=== PATIENT | female | born 1950 | race Caucasian/White ===

== ENCOUNTER → 2016-08-27 | Outpatient (CLI) | payer MEDICARE | LOC: GMAB 14:54 | PROVIDERS: ATTEND Family Medicine | DX: D50.8 Other iron deficiency anemias (principal); I10 Essential (primary) hypertension ==

== ENCOUNTER → 2016-12-19 | Outpatient (CLI) | payer MEDICARE | END | disposition home or self-care (01) | LOC: GMAB 10:47 | PROVIDERS: ATTEND Family Medicine | DX: D50.8 Other iron deficiency anemias (principal); K92.1 Melena ==

== ENCOUNTER 2017-03-27 05:45 | Day surgery (SDC) | payer MEDICARE ==
[2017-03-27] MEDS ORDERED: LACTATED RINGERS 1,000 ML ONE (06:04)
[2017-03-27] MEDS ORDERED: LACTATED RINGERS 1,000 ML IVS ONE ×2 (07:40→09:58)
[2017-03-27] MEDS ORDERED: LIDOCAINE 1% 10 ML VIAL INJ ONE (09:00)
[2017-03-27] MEDS ORDERED: PROPOFOL 200 MG/20 ML VIAL IV ONE (09:00)
--- NOTE | 2017-03-27 10:10 | OP ---
DATE OF PROCEDURE: 03/27/17 PREOPERATIVE DIAGNOSIS: 1. Guaiac-positive stool. 2. Change in bowel habits with diarrhea. POSTOPERATIVE DIAGNOSIS: 1. Hemorrhoids. 2. Diverticulosis. 3. Ascending colon polyp. PROCEDURE: 1. Colonoscopy plus polypectomy plus biopsy. SURGEON: Brent Love MD. COMPLICATIONS: None apparent. BLOOD LOSS: None. MEDICATIONS: Monitored anesthesia care. DESCRIPTION OF PROCEDURE: Informed consent was obtained prior to sedation. The preprocedure cardiopulmonary assessment was satisfactory. The patient was placed in the left lateral decubitus position and was sedated. A digital rectal exam revealed no rectal masses. The tip of the Olympus colonoscope was inserted in the rectum and guided over to the cecum. The cecum was identified by locating the ileocecal valve and appendiceal orifice. Prep was good. The mucosa of the cecum, ascending colon, hepatic flexure, transverse colon, splenic flexure, descending colon and sigmoid colon was closely examined. Direct and retroflexed views of the rectum were obtained. The patient had a small ascending colon polyp that I removed with a cold snare and recovered. The patient had diverticulosis involving the ascending colon, descending colon, and sigmoid. The patient has grade 2 internal hemorrhoids. I also took random biopsies of normal appearing colon mucosa throughout the colon to evaluate her for microscopic colitis as a possible cause of her change in bowel habits. The procedure was then terminated. RECOMMENDATIONS: 1. Followup pathology results. 2. Followup with me in the [place] [facility] in the next couple of months. #[id number] cc: Eleno Grissom MD MTDD
[2017-03-27 12:08] VITALS: O2SAT 99
[2017-03-27 12:36] VITALS: BP 150/83; TEMP 98
== END 2017-03-27 10:45 | disposition home or self-care (01) ==
LOC: AMB 05:45
PROVIDERS: ATTEND Internal Medicine Gastroenterology
DX: D12.2 Benign neoplasm of ascending colon (principal); K57.30 Diverticulosis of large intestine without perforation or abscess without bleeding; K64.1 Second degree hemorrhoids; E11.9 Type 2 diabetes mellitus without complications; I10 Essential (primary) hypertension; J44.9 Chronic obstructive pulmonary disease, unspecified; E78.5 Hyperlipidemia, unspecified; D50.9 Iron deficiency anemia, unspecified; E78.00 Pure hypercholesterolemia, unspecified; Z86.010 Personal history of colon polyps; Z79.84 Long term (current) use of oral hypoglycemic drugs; Z79.1 Long term (current) use of non-steroidal anti-inflammatories (NSAID); Z79.51 Long term (current) use of inhaled steroids; Z79.899 Other long term (current) drug therapy; Z88.6 Allergy status to analgesic agent
CPT/HCPCS: 00810; 36416; 45380; 45385; 82948; 88305; J3490; J7120

== ENCOUNTER → 2017-09-11 | Outpatient (CLI) | payer MEDICARE | LOC: GMAB 11:23 | PROVIDERS: ATTEND Family Medicine | DX: D64.9 Anemia, unspecified (principal) ==

== ENCOUNTER → 2017-10-24 | Outpatient (CLI) | payer MEDICARE | LOC: RESP 09:56 | PROVIDERS: ATTEND Family Medicine | DX: J44.1 Chronic obstructive pulmonary disease with (acute) exacerbation (principal) ==

== ENCOUNTER → 2018-02-17 | Outpatient (CLI) | payer MEDICARE | LOC: GMAE 10:56 | PROVIDERS: ATTEND Family Medicine | DX: D50.0 Iron deficiency anemia secondary to blood loss (chronic) (principal); I10 Essential (primary) hypertension; E11.9 Type 2 diabetes mellitus without complications ==

== ENCOUNTER → 2018-03-10 | Outpatient (CLI) | payer MEDICARE | LOC: GMAE 11:36 | PROVIDERS: ATTEND Family Medicine | DX: D50.0 Iron deficiency anemia secondary to blood loss (chronic) (principal) ==

== ENCOUNTER → 2018-05-07 | Outpatient (CLI) | payer MEDICARE | LOC: GMAE 10:39 | PROVIDERS: ATTEND Family Medicine | DX: D50.0 Iron deficiency anemia secondary to blood loss (chronic) (principal) ==

== ENCOUNTER → 2018-11-10 | Outpatient (CLI) | payer MEDICARE | LOC: GMAE 10:49 | PROVIDERS: ATTEND Family Medicine | DX: D50.0 Iron deficiency anemia secondary to blood loss (chronic) (principal); R06.02 Shortness of breath ==

== ENCOUNTER → 2019-01-16 | Outpatient (CLI) | payer MEDICARE ==
[~2019-01-16] MED LIST: ALBUTEROL SULFATE 2.5 MG/3 ML VIAL NEB ONE
--- NOTE | 2019-01-16 16:53 | CT ---
EXAM DESCRIPTION: CTA Chest: Computed Tomography. CLINICAL HISTORY: SOB COMPARISON: CTA chest 03/25/2018. TECHNIQUE: Spiral-axial scans at 1.25 x 2.5 mm intervals through the pulmonary arteries and chest after bolus infusion of IV contrast. Lung algorithm 2.5 x 2.5_-mm axial reconstructions. Coronal and sagittal 2.0 Mm reconstructions. 10.0 mm PE oblique 3-D reformatted images. No adverse reactions. Total Exam DLP: 677.55 mGy-cm. This exam was performed according to our departmental CT dose-optimization program which includes automated exposure control, adjustment of the mA and/or kV according to patient size and/or use of iterative reconstruction technique; to reduce radiation dose to as low as reasonably achievable (ALARA). FINDINGS: Pulmonary arteries: Same contrast density is the aorta and left atrium with less dense than the SVC and left innominate vein. Contrast seen from the main pulmonary artery to the bilateral proximal subsegmental pulmonary artery branches with no filling defects. The distal branches to visualize are also symmetric bilaterally. Heart and other great vessels: Coronary artery, aortic arch, and descending thoracic aortic calcifications also minimal calcifications in the proximal brachiocephalic vessels. Bilateral scattered mosaic parenchymal density. Lungs and airways: Bilateral emphysematous changes more prevalent in the upper lung beas[place]. Mostly blebs but occasional bulla bilaterally which are mostly abutting the pleura. No abnormal nodules or masses. No focal infiltrates. Pleura: Bilateral scattered foci of pleural thickening. No effusion or pneumothorax. Mediastinum and mitzi: scatter artifact from dense PA contrast. Intermediate size nodes in the right hilum. Small nodes in the middle and anterior mediastinum. Soft tissue neck, chest wall, and axillae: Venous collaterals in the left shoulder and left breast. Asymmetric density in the posterior inferior right breast. Normal sized lymph nodes in the bilateral axilla. Upper abdomen: Peritoneal space is unremarkable. Partially included organs demonstrate normal contrast enhancement. Atherosclerotic changes and intimal wall thickening of the proximal normally aerated aorta with atherosclerotic calcification and narrowing of major branching vessels. Osseous structures: Decreased bone density with multiple levels of disc space narrowing and some discs with desiccation and spondylosis. Bilateral arthrosis first costochondral junction. No lytic or blastic lesions. IMPRESSION: 1. CTA of the pulmonary arteries showing no evidence of acute pulmonary embolism. This represents improvement compared to the prior CTA scan in March 2018. 2. Emphysematous changes in the lungs more severe in the upper lung beasley. No abnormal nodules, mass, or focal infiltrate. 3. focal asymmetry or asymmetric density in the inferior right breast. Consider bilateral screening digital mammography if not otherwise performed in the past 12 months. Electronically signed by: Karri Cabrera MD 01/16/2019 4:51 PM CDT
== END ==
LOC: CT 09:24
PROVIDERS: ATTEND Family Medicine
DX: J43.9 Emphysema, unspecified (principal)
CPT/HCPCS: 71275; 94060; J7611

== ENCOUNTER 2019-02-23 18:33 | Inpatient (IN) | payer MEDICARE ==
--- NOTE | 2019-02-23 19:21 | ED.PDOC ---
History of Present Illness - General Chief Complaint: Trauma Stated Complaint: fall w/hematoma to posterior head Time Seen by Provider: 02/23/19 18:43 Source: patient, family Exam Limitations: no limitations - History of Present Illness Initial Comments: Patient presents after fallling and hitting the back of her head. Denies LOC. Has had nausea since. No vomiting. Her says that she has fallen multiple times in the last few days. She reports being "dizzy" and unsteady on her feet. Was on Xarelto for PE and DVTs until about 4 months ago when she stopped due to frequent epistaxis. She takes an ASA 81 mg each day. No other injuries nor complaints. Timing/Duration: intermittent Severity: moderate Improving Factors: nothing Associated Symptoms: other - as in HPI Allergies/Adverse Reactions: Allergies Codeine Allergy (Verified 09/20/14 15:08) Fexofenadine [From Isabela] Allergy (Verified 09/20/14 15:09) Home Medications: Ambulatory Orders Lisinopril 40 mg PO BEDTIME 03/25/17 Insulin Glargine [Toujeo Solostar] 300 unit SC DAILY 02/23/19 Review of Systems - Review of Systems Constitutional: States: no symptoms reported EENTM: States: no symptoms reported Respiratory: States: no symptoms reported Cardiology: States: no symptoms reported Gastrointestinal/Abdominal: States: no symptoms reported Genitourinary: States: no symptoms reported Musculoskeletal: States: no symptoms reported Skin: States: no symptoms reported Neurological: States: see HPI Endocrine: States: no symptoms reported Hematologic/Lymphatic: States: see HPI Past Medical History (General) - Patient Medical History Hx of COPD: Yes - emphysemia Hx Cardiac Disorders: Yes Hx Congestive Heart Failure: No Hx Pacemaker: No Hx Hypertension: Yes Hx Diabetes: Yes - insulin and oral controll Hx MRSA: No Family Medical History - Family History Father Family History: Unknown Living Status: Physical Exam - Physical Exam General Appearance: Alert Eye Exam: bilateral normal Ears, Nose, Throat: normal ENT inspection Neck: non-tender, full range of motion, supple Respiratory: chest non-tender, lungs clear, normal breath sounds Cardiovascular/Chest: normal peripheral pulses, regular rate, rhythm, no edema Gastrointestinal/Abdominal: normal bowel sounds, non tender, soft Back Exam: normal inspection, no CVA tenderness Extremity: normal range of motion, non-tender, normal inspection 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, no motor/sensory deficits, alert, normal mood/affect, oriented x 3 Skin Exam: normal color, other - golf ball size hematoma on right occiput, no abrasion, mildly TTP Lymphatic: no adenopathy Progress - Progress Progress: 02/23/19 23:53 Laboratory Tests 02/23/19 02/23/19 02/23/19 18:49 19:13 19:13 WBC 8.6 RBC 5.09 Hgb 13.0 Hct 39.7 MCV 78.0 L MCH 25.6 L MCHC 32.8 L RDW 16.5 H Plt Count 235 MPV 8.5 Absolute Neuts (auto) 5.90 Absolute Lymphs (auto) 2.00 Absolute Monos (auto) 0.50 Absolute Eos (auto) 0.10 Absolute Basos (auto) 0.10 Neutrophils % 69.1 Lymphocytes % 23.2 Monocytes % 5.9 Eosinophils % 1.2 Basophils % 0.6 PT INR PTT (SP) D-Dimer, Quantitative Sodium 140 Potassium 3.7 Chloride 103 Carbon Dioxide 26 Anion Gap 14.7 BUN 24 H Creatinine 0.85 BUN/Creatinine Ratio 28.2 H POC Glucose 245 H Random Glucose 248 H Serum Osmolality 291.7 Calcium 9.9 Total Bilirubin 0.3 AST 31 ALT 26 Alkaline Phosphatase 130 H Creatine Kinase CK-MB (CK-2) CK-MB (CK-2) % Troponin I Serum Total Protein 7.7 Albumin 4.4 Globulin 3.3 Albumin/Globulin Ratio 1.3 Urine Color Urine Appearance Urine pH Ur Specific [place] Urine Protein Urine Glucose (UA) Urine Ketones Urine Blood Urine Nitrite Urine Bilirubin Urine Urobilinogen Ur Leukocyte Esterase Urine RBC Urine WBC Ur Epithelial Cells Amorphous Sediment Urine Bacteria 02/23/19 02/23/19 02/23/19 19:13 19:13 19:25 WBC RBC Hgb Hct MCV MCH MCHC RDW Plt Count MPV Absolute Neuts (auto) Absolute Lymphs (auto) Absolute Monos (auto) Absolute Eos (auto) Absolute Basos (auto) Neutrophils % Lymphocytes % Monocytes % Eosinophils % Basophils % PT 9.6 INR 0.96 PTT (SP) 22.5 D-Dimer, Quantitative 1.73 H* Sodium Potassium Chloride Carbon Dioxide Anion Gap BUN Creatinine BUN/Creatinine Ratio POC Glucose Random Glucose Serum Osmolality Calcium Total Bilirubin AST ALT Alkaline Phosphatase Creatine Kinase 96 CK-MB (CK-2) 3.3 CK-MB (CK-2) % Not Reportable Troponin I < 0.02 Serum Total Protein Albumin Globulin Albumin/Globulin Ratio Urine Color Yellow Urine Appearance Sl cloudy Urine pH 5.5 Ur Specific [place] 1.025 Urine Protein Trace Urine Glucose (UA) Negative Urine Ketones Negative Urine Blood Negative Urine Nitrite Negative Urine Bilirubin Negative Urine Urobilinogen 0.2 Ur Leukocyte Esterase Trace H Urine RBC 0-1 Urine WBC 3-5 H Ur Epithelial Cells 1-3 Amorphous Sediment 1+ Urine Bacteria Rare CT head negative. Patient's blood pressure was lowered using lopressor and clonidine. CTA chest negative for PE. Admitted for hypertensive urgency by Bruce Rodriguez. Departure - Departure Clinical Impression: Hypertensive urgency Disposition: Admit Patient Condition: Fair Departure Forms: ED Discharge - Pt. Copy, Patient Portal Self Enrollment Diet: diabetic diet Activity: as per physical therapy Referrals: CINTHIA MEDRANO MD [Primary Care Provider] - 1-2 Weeks Home Medications: Ambulatory Orders Lisinopril 40 mg PO BEDTIME 03/25/17 Insulin Glargine [Toujeo Solostar] 300 unit SC DAILY 02/23/19 Critical Care Note - Critical Care Note Total Time (mins): 240
--- NOTE | 2019-02-23 19:46 | CT ---
EXAM: CT Head Without Intravenous Contrast CLINICAL HISTORY: 68 years old and is Female; fall onto head, on anticoagulants TECHNIQUE: Axial computed tomography images of the head/brain without intravenous contrast. Sagittal and coronal reformatted images were created and reviewed. This CT exam was performed using one or more of the following dose reduction techniques: automated exposure control, adjustment of the mA and/or kV according to patient size, and/or use of iterative reconstruction technique. COMPARISON: No relevant prior studies available. FINDINGS: Limitations: None. Brain: There is age related cortical atrophy and periventricular white matter hypodensity most consistent with chronic small ischemic change. No acute infarct, hemorrhage or mass. Ventricles: Unremarkable. No ventriculomegaly. Bones/joints: Unremarkable. No acute fracture. Soft tissues: Unremarkable. Sinuses: Unremarkable as visualized. No acute sinusitis. Mastoid air cells: Unremarkable as visualized. No mastoid effusion. IMPRESSION: No acute findings. Electronically signed by: Dee Whitman MD 02/23/2019 7:44 PM CDT
--- NOTE | 2019-02-23 21:29 | CT ---
PROCEDURE: CTA Chest CLINICAL HISTORY: 68 years Female syncope, history of DVT and PE TECHNIQUE: Contiguous axial images obtained through the chest were obtained from the thoracic inlet to the level of the upper abdomen during the pulmonary arterial phase of intravenous contrast administration. Coronal, sagittal, and MIP reformatted images provided. This CT exam was performed according to our departmental dose-optimization program, which includes one or more of the following dose reduction techniques: automated exposure control, adjustment of the mA and/or kV according to patient size, and/or use of iterative reconstruction technique. COMPARISON: Comparison is made to the prior examination dated 01/16/2019. FINDINGS: There is no pulmonary embolus. The heart is normal in size without pericardial effusion. Atherosclerosis without thoracic aortic aneurysm or dissection Again seen is moderate diffuse centrilobular emphysema, most pronounced in the lung apices. Mild central bronchial wall thickening. No airway obstruction. No airspace infiltrate, pleural effusion, or pneumothorax. No lymphadenopathy in the chest. Stable, nonspecific thickening of the adrenal glands. No visualized acute upper abdominal abnormality. Chronic degenerative changes throughout the thoracic spine without acute fracture. IMPRESSION: No pulmonary embolus. Moderate emphysema with mild central bronchial wall thickening, infectious vs. reactive. No other acute findings. Electronically signed by: Hansa Caceres MD 02/23/2019 9:27 PM CDT
[2019-02-23] MEDS ORDERED: LISINOPRIL 10 MG TAB PO ONE (21:57)
[2019-02-23] MEDS ORDERED: METOPROLOL TARTRATE INJ 5 MG/5 ML VIAL IV ONE (21:57)
[2019-02-23] MEDS ORDERED: cloNIDine HCL 0.1 MG TAB PO ONE (22:40)
--- NOTE | 2019-02-24 00:22 | HP ---
SUPERVISING PHYSICIAN: Anselmo Rivera M.D. CHIEF COMPLAINT: Dizziness and multiple falls for a week. HISTORY OF PRESENT ILLNESS: Ms. Michelle is a 68 year-old female patient who presented to the Emergency Department after she sustained a fall and noted that she had hit the back of her head. She denied any loss of consciousness. She endorses that she has been dizzy and unsteady on her feet for well over a week and falls quite frequently. She feels like her left leg at times is not working as well. Otherwise no other deficits were noted. She does have a history of deep venous thrombosis with pulmonary embolism and placed on Xarelto, but took herself off Xarelto approximately 4 months ago. She was having frequent epistaxis and refused to take the medicine. She was instructed to take an aspirin 81 mg daily but she has not been doing that as well. She notes that her dizziness is only present when she stands up and it does go away after a short period of time. Laboratory studies showed a normal white count without a left shift. Coagulations studies showed a normal PTT but D-dimer is elevated at 1.73. Chemistries were unremarkable with normal electrolytes, BUN 24, glucose was a little elevated at 248. Liver functions were all within normal limits with a troponin less than 0.02. Urinalysis showed just a trace of leukocyte esterase with microscopic just revealing 3 to 5 WBCs with rare bacteria. On presentation to the Emergency Department, she was noted to be hypertensive at 215/119, heart rate was 92. She was showing a temperature of 99.3, satting 95% on room air with 22 respirations. She then had a CT of the head without contrast and per radiology interpretation there were no acute findings. This was followed-up with a CT of the chest to rule out PE and per radiology interpretation there was no noted pulmonary embolus. There was a note of moderate diffuse central lobular emphysema. Her blood pressure was treated with Clonidine and Labetalol in the E. R. which she did respond to. After 2 doses her blood pressure was 194/76. Dr. Carolina requested that the patient be admitted for further treatment of hypertensive urgency with associated dizziness with the need to further rule out possible cerebrovascular accident. She was placed in observation in stable condition. PAST MEDICAL HISTORY: 1. Deep venous thrombosis of the left popliteal and calf veins in March 2018. 2. Pulmonary embolus with associated DVT in March 2018, started on Xarelto with the patient not being compliant with treatment. 3. Hypertension. 4. Diabetes mellitus type 2. 5. Chronic obstructive pulmonary disease. 6. Tension headaches. 7. Hyperlipidemia. PAST SURGICAL HISTORY: 1. Cataract removal bilaterally. 2. Joint replacement right knee. 3. Rotator cuff repair on the right. 4. Cornea transplant of the right eye in 06/2016. HOME MEDICATIONS: The patient notes that she has multiple medications but is only taking Lisinopril 40 mg daily. She was supposed to be taking medications as listed: 1. Trelegy ellipta 100-62.5-25 mcg, 100 mcg daily. 2. Simvastatin 40 mg at bedtime. 3. Prednisolone acetate 1% ophthalmic solution 1 drop both eyes b.i.d. 4. Metformin 1,000 mg b.i.d. 5. Toujeo units as directed. 6. [place] 10/325 mg every 4 hours p.r.n. 7. Fergon 240 mg daily. 8. Flexeril 10 mg at bedtime revealed normal 9. Albuterol inhalers q.i.d. ALLERGIES: CODEINE AND FEXOFENADINE. FAMILY HISTORY: Father at age 64 secondary to a myocardial infarction. He had a history of hypertension and type 2 diabetes. Mother at age 68 due to liver cancer. She had angina and COPD. SOCIAL HISTORY: She is retired. She has 2 children. She lives with her in [place], [place]. She does have a past history of cigarette smoking but quit in 2006. She has never drank alcohol and does not use illicit drugs. REVIEW OF SYSTEMS: CONSTITUTIONAL: Denies any fevers, chills, general malaise, unintentional weight loss. HEENT: Positive for dizziness but negative for any ear aches, sore throat, nasal congestion, vision changes or tinnitus. RESPIRATORY: Positive for COPD with chronic shortness of breath utilizing oxygen at night with no reported wheezing, coughing or worsening shortness of breath. CARDIOVASCULAR: Denies any chest pains, palpitations or syncopal episodes. GASTROINTESTINAL: Negative for any nausea, vomiting, diarrhea or constipation. GENITOURINARY: Negative for dysuria, hematuria or polyuria. MUSCULOSKELETAL: No reported arthralgias or joint swelling. NEUROLOGIC: As noted in history of present illness, dizziness with positional change with multiple recent falls in the last week. No reported seizures. She does note that she feels like maybe her left leg is not as coordinated as it should be. No other focal motor deficits or sensory deficits are noted. HEMATOLOGIC: History of deep venous thrombosis having recently been on Xarelto, within the last 4 months stopping due to multiple epistaxis. PHYSICAL EXAMINATION: VITAL SIGNS: In the E. R., blood pressure initially was 215/119 with heart rate 92, satting 95% on room air, temperature 99.3. After Labetalol and Clonidine prior to admission to the floor, blood pressure was down to 194/76. Admission weight is 83 kg. GENERAL: On admission to the Medical/Surgical floor the patient appears to be in no acute distress. She is alert. HEENT: Tympanic membranes are clear bilaterally. Oropharynx is pink and moist without any lesions. NECK: Supple, non-tender. Full range of motion. CHEST: Lungs were clear to auscultation, just diminished towards the bases but no rhonchi, wheezing or rales. CARDIOVASCULAR: Regular rate and rhythm without appreciable murmurs, gallops, or rubs. ABDOMEN: Soft, non-tender. Positive bowel sounds. BACK: Without any CVA or vertebral tenderness. No obvious traumatic injuries. EXTREMITIES: Without any clubbing, cyanosis or edema with no obvious trauma. NEUROLOGIC: Cranial nerves II-XII are grossly intact. She was alert and oriented times three. Facial features were symmetrical. Extraocular movements are within normal limits. There is no notable nystagmus. There was no detectable drift to the upper extremities and no obvious weakness to the lower extremities, however the patient was not seen ambulating at time of exam. SKIN: [place], warm and dry. There is a golf ball sized hematoma on the right occiput. No abrasions. Mildly tender to palpation. CT of the head was without any acute findings. LYMPHATICS: Without any lymphadenopathies. LABORATORY: White count 8,600, hemoglobin 13, hematocrit 39.7, platelet count 235,000. Differential shows to be without a left shift. RBC indices are showing a microcytic hypochromic presentation. Coagulation studies showed a normal PT and PTT with a D-dimer at 1.73. Chemistries showed normal electrolytes, BUN 24, creatinine .85, calcium 9.9. Liver functions were within normal limits. Troponin was less than 0.02. Urine just showed a trace of leukocyte esterase. Microscopic just showed 1 RBC and 3 to 5 WBCs, 1 to 3 epithelials, rare bacteria. RADIOLOGY: CT of the thorax prior to admission rule out PE was without any acute findings for pulmonary embolus. Brain MRI per radiology interpretation showed abnormal diffusion restriction in the right cerebellar hemisphere, junction of the right parietal and occipital lobes in the centrum semiovale, bilateral frontoparietal junctions in the vinson radiata, and the junction of the posterior limb of the right internal capsule and right thalamus. Not associated with hemorrhage or significant mass effect. This is consistent with embolic type right CVA noted to be more likely to be originating in the right common carotid/right ICA than the right vertebral artery. Small pituitary in the sella containing mostly spinal fluid. This was followed-up with a CT of the head and neck and per radiology interpretation showed less than 50% diameter stenosis of the proximal right ICA. No filling defects. No aneurysms, stenosis, vasculitis or mass effects in the neck or head. There was also noted no abnormal vascularity where embolic lesions were on the MRI scan of the brain of the same day. Bilateral lower extremity Doppler studies are pending. Echocardiogram is pending. ASSESSMENT: 1. 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 2. 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 3. Hypertensive emergency secondary to #1, now controlled. 4. Microcytic hypochromic anemia with iron deficiency history previously on iron therapy. 5. Type 2 diabetes mellitus on Metformin and Toujeo. 6. Chronic obstructive pulmonary disease without any signs of exacerbation. 7. History of tension headaches. 8. History of hypertension as noted above with hypertensive urgency on admission. PLAN: The patient is going to be placed in observation for continued evaluation. At this point her blood pressure is controlled. Will start her on Lovenox 1 mg per kg now that her blood pressure is better controlled and no evidence of any hemorrhage. Will await DVT studies to further rule out any source of emboli as well as echocardiogram. Will restart her medications as appropriate. Given that she has had 2 doses of radiographic contrast within the last 24 hours, I am going to go ahead and start her on some Mucomyst 600 mg every 8 hours for 3 doses for renal protection. Will go ahead and start her on some slow IV fluids as well. Will await findings of other studies. At this point the patient will benefit from inpatient rehab and continued anticoagulation. I will further consult with Dr. Rivera in regards to the current plan of care and anticipate the patient's length of stay to be 1 to 2 days. Until we can transition her to outpatient management will continue to monitor and treat as needed. #[id number] [facility]
[2019-02-24] MEDS ORDERED: GLUCAGON INJ 1 MG VIAL SUBCU PRN (00:42)
[2019-02-24] MEDS ORDERED: ALBUTEROL SULFATE 2.5 MG/3 ML VIAL NEB PRN (00:42)
[2019-02-24] MEDS ORDERED: ONDANSETRON INJ 4 MG/2 ML VIAL IV PRN (00:42)
[2019-02-24] MEDS ORDERED: ACETAMINOPHEN 325 MG TAB PO PRN (00:42)
[2019-02-24] MEDS ORDERED: SODIUM CHLORIDE 0.9% (FLUSH) 10 ML SYG IV PRN (00:42)
[2019-02-24] MEDS ORDERED: DEXTROSE 50% 25 GM/50 ML SYG IV PRN (00:42)
[2019-02-24] MEDS ORDERED: IV SET AND CAP CHANGE INJ INJ SCH (01:00)
[2019-02-24] MEDS ORDERED: NITROGLYCERIN 0.4 MG/HR PATCH TOP SCH (01:00)
[2019-02-24] MEDS ORDERED: ENOXAPARIN SODIUM 80 MG/0.8 ML SYG SUBCU ONE (01:29)
[2019-02-24] MEDS ORDERED: NITROGLYCERIN 0.4 MG/HR PATCH TOP ONE (01:30)
[2019-02-24] MEDS: ENOXAPARIN SODIUM 80 MG/0.8 ML SYG SUBCU SCH ×2 (03:00→15:47)
[2019-02-24] MEDS: INSULIN LISPRO 100 UNITS/ML PEN SUBCU SCH ×4 (07:25→21:02)
[2019-02-24] MEDS ORDERED: NON-FORMULARY MEDICATION 1 EA MIS (Lisinopril [Lisinopril] 40 MG) PO SCH (08:00)
[2019-02-24] MEDS ORDERED: LISINOPRIL 10 MG TAB ONE (08:47)
[2019-02-24] MEDS: SODIUM CHLORIDE 0.9% (FLUSH) 10 ML SYG IV SCH ×2 (09:22→20:31)
[2019-02-24] MEDS ORDERED: ALPRAZolam 0.25 MG TAB PO ONE (10:11)
[2019-02-24] MEDS: ALBUTEROL SULFATE 2.5 MG/3 ML VIAL NEB SCH ×4 (11:02→20:20)
--- NOTE | 2019-02-24 12:17 | MRI ---
EXAM DESCRIPTION: Brain w/o Contrast: MRI. CLINICAL HISTORY: possible TIA COMPARISON: CT abdomen, 02/23/2019. CT scan of the renal arteries, bilateral lower extremity duplex the venous ultrasound examination, and bilateral ultrasound carotid and vertebral duplex examination today. TECHNIQUE: Multiplanar, high-field MRI unit, multiple diffusion sequences, multiple conventional sequences without contrast. FINDINGS: On the diffusion-weighted axial B 1000 sequences, abnormal hyperintense signal is visible in the posterior right centrum semiovale occipital/parietal junction, bilateral periventricular white matter/vinson radiata at the parietal frontal junction, and the right posterior thalamus/posterior limb of right internal capsule. Also abnormal focal hyperintense signal in the medial right cerebellar hemisphere. No acute or subacute hemorrhagic signal. On the FLAIR and T2-weighted sequences, there is diffuse focal and confluent signal in the periventricular white matter and perez-white matter junctions of the bilateral cerebral hemispheres, most likely cerebral microvascular disease. . No hemorrhage, no cerebral edema, no mass-effect. Microvascular disease-type abnormal FLAIR signal in the bilateral basal ganglia. Normal signal in the brainstem and left cerebellar hemisphere. No hemorrhage, no parenchymal edema, no mass-effect. No diffusion restriction elsewhere in the brain. Cortical sulci, ventricles, and other CSF spaces, and the subdural spaces are normally configured for patients age. Asymmetry of the ventricular system is within acceptable limits. No effacement or displacement. No midline shift. No extra-axial hemorrhage. Normal flow signal void in the major vessels of the afognak Jaquez, and the venous sinuses. IACs are symmetric bilaterally. Normal signal in the bilateral mastoid air cells. No mass effect in the bilateral cerebellopontine angles. Pituitary gland occupies most of the sella. Base of the cerebellar tonsils is above the foramen magnum. Paranasal sinuses are unremarkable.. The bony calvarium is intact. IMPRESSION: 1. Abnormal diffusion restriction in the right cerebellar hemisphere, junction of the right parietal and occipital lobes in the centrum semiovale, bilateral frontoparietal junctions in the vinson radiata, and the junction of the posterior limb of the right internal capsule and the right thalamus. Not associated with hemorrhage or significant mass effect. This is consistent with an embolic type right CVA. This is more likely to be originating in the right common carotid/right ICA, then the right vertebral artery. 2. No intra-axial extra-axial hemorrhage, mass effect, or midline shift. 3. Small pituitary in the sella which contains mostly CSF. Electronically signed by: Karri Cabrera MD 02/24/2019 12:15 PM CDT
[2019-02-24] MEDS ORDERED: ACETYLCYSTEIN 20 % 6,000 MG/30 ML VIAL PO ONE ×2 (13:00→21:00)
--- NOTE | 2019-02-24 16:09 | CT ---
EXAM DESCRIPTION: CTA Head (accession [id number]), Computed Tomography. CTA Neck (accession [id number]): Computed Tomography. CLINICAL HISTORY: rt sided embolic CVA COMPARISON: MRI scan of the brain without contrast on this visit. Bilateral lower extremity duplex ultrasound evaluation of the deep venous systems on this visit. TECHNIQUE: Spiral, axial 2.5 x 2.5 mm scans through the neck soft tissues and intracranial brain, after bolus infusion of IV contrast. Coronal and sagittal 2 x 2 mm reconstructions. 3D volume rendering images head and neck. . Percentage of stenosis recorded will be based upon NASCET criteria. Total Exam DLP: 382.81 mGy-cm. This exam was performed according to our departmental CT dose-optimization program which includes automated exposure control, adjustment of the mA and/or kV according to patient size and/or use of iterative reconstruction technique; to reduce radiation dose to as low as reasonably achievable (ALARA). FINDINGS: Typical origin of the right common carotid artery with minimal calcification at the origin and minimal tortuosity. 45% diameter stenosis of the proximal right ICA caused by posterior wall calcification. Minimal calcification in the transverse segment but no significant stenosis. Typical origin of the left common carotid artery from the aorta with minimal atherosclerotic calcification. Minimal calcification in the common carotid and approximately 20% diameter stenosis on the medial posterior wall of the left ICA. No calcification in the remainder of the ICA including intracranial segment. Intracranially. No filling defects. No aneurysms or stenoses in the included segments of the right MCA and right JEREMY. No filling defects. A1 segment of the left JEREMY is smaller than the right remainder of the left JEREMY and the included segments of the left MCA are unremarkable. No aneurysms, no vasculitis, no mass effect. No vascular blush noted in the regions where infarcts were noted on the MRI brain examination. Vertebral arteries with usual origins from the subclavian arteries with the caliber of the right vertebral artery is approximately twice that of the left from the origin, through the vertebral foramina, and into the skull base. Bilateral origins of branch vessels from the vertebral arteries and basilar artery are unremarkable. There is suggestion of a small left posterior communicating artery. No stenoses, no aneurysm, no mass effect, no vasculitis. No vascular blush noted in the right cerebellar hemisphere where infarct was noted on the MRI brain examination. No soft tissue mass or abnormal enhancement noted in the neck. Airway appears symmetric. Salivary glands are symmetric. No abnormalities in the sinuses. Previous cataract surgery. Normal enhancement of the thyroid gland. No soft tissue masses or adenopathy in the included mediastinum. Emphysematous changes in the bilateral lungs with no acute infiltrate or mass. 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 Significant neural foramina narrowing or stenosis bilaterally at C5-C6 and C6-7. Also, kyphosis C1-C6. IMPRESSION: 1. Moderate narrowing of the A1 segment of the left anterior cerebral artery but no definite stenosis or filling defect. Diffuse narrowing of the left vertebral artery from the origin to the vertebrobasilar junction, but no definite stenosis or filling defect. No filling defects in the remaining vessels bilaterally in the anterior and posterior circulations. Less than 50% diameter stenosis of the proximal right ICA. No filling defects. No aneurysm, stenosis, vasculitis, or mass effect in the neck or head. 2. No abnormal vascularity where embolic lesions were seen on MRI scan of the brain today. 3. Diffuse spondylosis of the cervical spine with abnormal kyphosis upper segments. Significant neural foraminal narrowing or stenosis unilaterally or bilaterally at C5-6 and C6-7. 4. Emphysematous changes in the included bilateral upper lobes of the lungs. Electronically signed by: Karri Cabrera MD 02/24/2019 4:07 PM CDT
--- NOTE | 2019-02-24 16:16 | US ---
EXAM DESCRIPTION: Venous,Lower Extremity RT (accession [id number]), Venous,Lower Extremity LT (accession [id number]): Ultrasound. CLINICAL HISTORY: Uncontrolled BP, Hx PE and DVT w/ elevated D-dimer COMPARISON: MRI scan of the brain on this visit. CTA of the neck and head on this visit. TECHNIQUE: Two -dimensional and doppler sonographic evaluation of the deep venous system of the bilateral lower extremities. FINDINGS: Doppler evaluation shows normal color flow and normal phasicity and augmentation of the bilateral common femoral veins, femoral veins, popliteal veins, greater saphenous vein, and peroneal veins, . Also bilateral Posterior tibial veins. These veins showed normal occlusion with transducer pressure. Two-dimensional survey showed no echogenic clot within these veins. IMPRESSION: Duplex ultrasound evaluation of the bilateral lower extremity deep venous systems showing no evidence of thrombosis. Electronically signed by: Karri Cabrera MD 02/24/2019 4:14 PM CDT
--- NOTE | 2019-02-24 16:16 | US ---
EXAM DESCRIPTION: Venous,Lower Extremity RT (accession [id number]), Venous,Lower Extremity LT (accession [id number]): Ultrasound. CLINICAL HISTORY: Uncontrolled BP, Hx PE and DVT w/ elevated D-dimer COMPARISON: MRI scan of the brain on this visit. CTA of the neck and head on this visit. TECHNIQUE: Two -dimensional and doppler sonographic evaluation of the deep venous system of the bilateral lower extremities. FINDINGS: Doppler evaluation shows normal color flow and normal phasicity and augmentation of the bilateral common femoral veins, femoral veins, popliteal veins, greater saphenous vein, and peroneal veins, . Also bilateral Posterior tibial veins. These veins showed normal occlusion with transducer pressure. Two-dimensional survey showed no echogenic clot within these veins. IMPRESSION: Duplex ultrasound evaluation of the bilateral lower extremity deep venous systems showing no evidence of thrombosis. Electronically signed by: Karri Cabrera MD 02/24/2019 4:14 PM CDT
[2019-02-24] MEDS: prednisoLONE ACETATE 1% OPHTH SOL 5 ML BTTL BOTH_EYES SCH ×2 (20:30→20:39)
[2019-02-24] MEDS: SIMVASTATIN 20 MG TAB PO SCH (20:31)
[2019-02-25] MEDS: ENOXAPARIN SODIUM 80 MG/0.8 ML SYG SUBCU SCH (03:19)
[2019-02-25] MEDS ORDERED: ACETYLCYSTEIN 20 % 6,000 MG/30 ML VIAL PO ONE (05:00)
[2019-02-25] MEDS: INSULIN LISPRO 100 UNITS/ML PEN SUBCU SCH ×4 (07:12→21:01)
[2019-02-25] MEDS: ALBUTEROL SULFATE 2.5 MG/3 ML VIAL NEB SCH ×4 (07:38→19:40)
[2019-02-25] MEDS: prednisoLONE ACETATE 1% OPHTH SOL 5 ML BTTL BOTH_EYES SCH ×2 (08:24→21:00)
[2019-02-25] MEDS: FERROUS GLUCONATE 325 MG TAB PO SCH (08:24)
[2019-02-25] MEDS: LISINOPRIL 10 MG TAB PO SCH (08:25)
[2019-02-25] MEDS: SODIUM CHLORIDE 0.9% (FLUSH) 10 ML SYG IV SCH ×2 (08:25→21:00)
[2019-02-25] MEDS ORDERED: cloNIDine HCL 0.1 MG TAB PO ONE (12:50)
--- NOTE | 2019-02-25 13:48 | CT ---
EXAM DESCRIPTION: Abdoment/Pelvis w/o Contrast CLINICAL HISTORY: 68 years Female, hx of DVt and acute CVA COMPARISON: None. TECHNIQUE: Excellent images were obtained without intravenous or oral contrast media. Sagittal and coronal reconstruction was performed.This exam was performed according to our departmental dose-optimization program, which includes automated exposure control, adjustment of the mA and/or kV according to patient size and/or use of iterative reconstruction technique. FINDINGS: The lung bases are clear. The liver and spleen are unremarkable. No biliary ductal dilatation is observed. The gallbladder is normal in appearance. No adrenal masses are detected. The pancreas is normal in appearance. An infrarenal 4.46 cm diameter abdominal aortic aneurysm is observed. No involvement of the iliac vessels is observed. Diverticulosis of the colon is observed without evidence of diverticulitis. The patient is post hysterectomy. No inguinal region abnormality is seen. Imaging of the kidneys reveals no evidence of hydronephrosis mass or cyst. There is a 2.4 mm diameter nonobstructing upper pole right renal calculus. Degenerative changes are observed throughout the lumbar spine. IMPRESSION: 1. A 4.46 cm diameter infrarenal abdominal aortic aneurysm is observed. Recommend vascular consultation and annual follow-up. Reference: J Vasc Surg 2009 Oct;50(4 Suppl):S2-49. 2. Uncomplicated diverticulosis of the colon. 3. Hysterectomy. 4. 2.4 mm diameter nonobstructing right renal calculus. Electronically signed by: Maurizio Spicer MD 02/25/2019 1:45 PM CDT
[2019-02-25] MEDS: RIVAROXABAN 10 MG TAB PO SCH (14:16)
[2019-02-25] MEDS: SIMVASTATIN 20 MG TAB PO SCH (21:00)
[2019-02-26] MEDS: INSULIN LISPRO 100 UNITS/ML PEN SUBCU SCH ×2 (07:22→12:02)
[2019-02-26] MEDS: ALBUTEROL SULFATE 2.5 MG/3 ML VIAL NEB SCH ×2 (07:58→11:58)
[2019-02-26] MEDS: RIVAROXABAN 10 MG TAB PO SCH (08:43)
[2019-02-26] MEDS: LISINOPRIL 10 MG TAB PO SCH (08:43)
[2019-02-26] MEDS: prednisoLONE ACETATE 1% OPHTH SOL 5 ML BTTL BOTH_EYES SCH (08:43)
[2019-02-26] MEDS: SODIUM CHLORIDE 0.9% (FLUSH) 10 ML SYG IV SCH (08:43)
[2019-02-26] MEDS: FERROUS GLUCONATE 325 MG TAB PO SCH (08:43)
--- NOTE | 2019-02-26 08:57 | PN ---
SUPERVISING PHYSICIAN: Vivek Rivera MD DATE: 02/25/19 SUBJECTIVE: The patient remains comfortable. She has had no significant changes in her condition. Her blood pressure is elevated periodically, but she responds to clonidine. She has been doing well in physical therapy and has been accepted to [facility], however, there was no means of transportation today, so she will be transported to [facility] in the morning. OBJECTIVE: VITAL SIGNS: Temperature 98.6. Pulse 79. Blood pressure 153/91. Respirations 18. Saturation 94% on room air. Weight 82.8 kg. GENERAL: The patient is resting comfortably, appears to be without any acute distress. She is alert. She just finished walking with physical therapy. CHEST: Lung sounds are clear to auscultation. HEART: Regular rate and rhythm. ABDOMEN: Soft, nontender. Positive bowel sounds. EXTREMITIES: No edema. NEUROLOGIC: Alert and oriented times three. She continues to have dizziness with some ambulation. No seizure activity, no notable worsening of the lower extremity weakness on the left. In fact, it looks to be somewhat improved based on what I saw with her walking with physical therapy. No other focal motor deficits are noted. LABORATORY: Blood sugars have been 179 and 254. She did have a repeat chemistry yesterday to check creatinine level just because of the amount of contrast and it remains within normal limits at 0.73. RADIOLOGY: Abdominopelvic CT this afternoon per radiologic interpretation showed a 4.46 cm diameter infrarenal abdominal aortic aneurysm with uncomplicated diverticulosis of the colon, hysterectomy and a 2.4 mm diameter nonobstructing right renal calculus. ASSESSMENT: 1. 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 2. 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 3. Hypertensive emergency secondary to #1, now controlled. 4. Microcytic/hypochromic anemia with iron deficiency history previously on iron therapy. 5. Type 2 diabetes mellitus on metformin and Toujeo. 6. New findings of infrarenal abdominal aortic aneurysm as noted on CT findings with no evidence of any acute leaking or thrombus noted on CT per radiologic interpretation with vascular consultation with Dr. Peterson in [place] with recommendation the patient followup once she is through at [facility]. 7. Chronic obstructive pulmonary disease without any signs of exacerbation. 8. History of tension headaches. 9. History of hypertension as noted above with hypertensive urgency on admission. PLAN: The patient has been accepted to [facility] awaiting transportation in the morning. We will monitor blood pressures closely and utilize p.r.n. clonic as needed. She has been fairly stable on just LETTY inhibitor. She has been transitioned to Xarelto from Lovenox. I did discuss the findings on CT with Dr. Peterson and he recommended the patient followup with him once she is done at [facility]. She definitely needs to have continued neurological followup which she can get at [facility] with Dr. Bruce. She did receive her doses of Mucomyst. We will recheck creatinine in the morning. Hopefully tomorrow she will be transferred to inpatient rehabilitation at [facility]. Until then, we will continue to monitor and treat as needed. #[id number] [facility]
[2019-02-26 13:31] VITALS: BP 176/84; TEMP 98.4; O2SAT 92
--- NOTE | 2019-03-10 08:45 | DS ---
SUPERVISING PHYSICIAN: Vivek Rivera MD ADMISSION DIAGNOSIS: 1. 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 2. 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 3. Hypertensive emergency secondary to #1, now controlled. 4. Microcytic hypochromic anemia with iron deficiency history previously on iron therapy. 5. Type 2 diabetes mellitus on metformin and Toujeo. 6. Chronic obstructive pulmonary disease without any signs of exacerbation. 7. History of tension headaches. 8. History of hypertension as noted above with hypertensive urgency on admission. DISCHARGE DIAGNOSIS: 1. 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 2. 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 3. Hypertensive emergency secondary to #1, now controlled. 4. Microcytic/hypochromic anemia with iron deficiency history previously on iron therapy. 5. Type 2 diabetes mellitus on metformin and Toujeo. 6. New findings of infrarenal abdominal aortic aneurysm as noted on CT findings with no evidence of any acute leaking or thrombus noted on CT per radiologic interpretation with vascular consultation with Dr. Peterson in [place] with recommendation the patient followup once she is through at [facility]. 7. Chronic obstructive pulmonary disease without any signs of exacerbation. 8. History of tension headaches. 9. History of hypertension as noted above with hypertensive urgency on admission. REASON FOR HOSPITALIZATION: Ms. Michelle is a 68 year-old female patient who presented to the Emergency Department after she sustained a fall and noted that she had hit the back of her head. She denied any loss of consciousness. She endorses that she has been dizzy and unsteady on her feet for well over a week and falls quite frequently. She feels like her left leg at times is not working as well. Otherwise no other deficits were noted. She does have a history of deep venous thrombosis with pulmonary embolism and placed on Xarelto, but took herself off Xarelto approximately 4 months ago. She was having frequent epistaxis and refused to take the medicine. She was instructed to take an aspirin 81 mg daily but she has not been doing that as well. She notes that her dizziness is only present when she stands up and it does go away after a short period of time. Laboratory studies showed a normal white count without a left shift. Coagulations studies showed a normal PTT but D-dimer is elevated at 1.73. Chemistries were unremarkable with normal electrolytes, BUN 24, glucose was a little elevated at 248. Liver functions were all within normal limits with a troponin less than 0.02. Urinalysis showed just a trace of leukocyte esterase with microscopic just revealing 3 to 5 WBCs with rare bacteria. On presentation to the Emergency Department, she was noted to be hypertensive at 215/119, heart rate was 92. She was showing a temperature of 99.3, satting 95% on room air with 22 respirations. She then had a CT of the head without contrast and per radiology interpretation there were no acute findings. This was followed-up with a CT of the chest to rule out PE and per radiology interpretation there was no noted pulmonary embolus. There was a note of moderate diffuse central lobular emphysema. Her blood pressure was treated with Clonidine and Labetalol in the E. R. which she did respond to. After 2 doses her blood pressure was 194/76. Dr. Carolina requested that the patient be admitted for further treatment of hypertensive urgency with associated dizziness with the need to further rule out possible cerebrovascular accident. She was placed in observation in stable condition. LABORATORY: White count was normal at 8,600, hemoglobin 13, hematocrit 39.7. RBCs indicate a microcytic/hypochromic presentation. Platelet count 235,000. Differential was without a left shift. Coagulation studies show elevated D- dimer at 1.73. PT and PTT were both normal. Chemistries on admission showed normal electrolytes with BUN 24, creatinine 0.85. Blood sugars ranged between 149 and 254. Liver functions were all within normal limits. Troponin less than 0.02. Urinalysis showed trace leukocyte esterase, 0 to 1 RBCs, 3 to 5 WBCs, 1 to 3 epithelials, rare bacteria. MICROBIOLOGY: There was no microbiology submitted. RADIOLOGY: She had multiple radiographic studies including initially a CT of the head in the Emergency Room and per radiologic interpretation showed no acute findings. This was followed with a CTA of the chest due to the elevated D-dimer and per radiologic interpretation there was no pulmonary embolus noted. Please see that report for full details. She had lower extremity Doppler studies to rule out DVT and per radiologic interpretation both without any evidence of thrombus. She then had an MRI of the brain and per radiologic interpretation showed abnormal diffuse restriction in the right cerebral hemisphere with no associated hemorrhage or significant mass effect consistent with embolic type right CVA. No intraaxial or extraaxial hemorrhage, mass effect or midline shift. Small pituitary in the sella which contains mostly CSF. Please see that full report for details. She then had a CT of the head and neck and per radiologic interpretation showed moderate narrowing of the A1 segment of the anterior cerebral artery, but no definite stenosis or filling defects. There was no diffuse narrowing of the left vertebral artery from the origin of the vertebrobasilar junction, but no definite stenosis or filling defect. There were no filling defects in the remaining vessels bilaterally in the anterior and posterior circulations. Less than 50% diameter stenosis in the proximal right ICA with no filling defects, no aneurysm, no stenosis, vasculitis, or mass effect in the neck or head. No abnormal vascularity where embolic lesions were seen on MRI scan on the same day. Please see that report for full details. She also had an echocardiogram and per radiologic interpretation showed normal left ventricular size and function with mild concentric left ventricular hypertrophy, grade 1 diastolic dysfunction consistent with impaired relaxation and normal filling pressures. No reported thrombus. No left ventricular thrombus. She also had an abdominopelvic CT and per radiologic interpretation there was note of a 4.6 cm diameter infrarenal abdominal aortic aneurysm, recommended vascular consultation and annual followup recommended. There is note of uncomplicated diverticulosis of the colon. Please see that report for full details. Her 12- lead EKG showed a normal sinus rhythm with no ST or T-wave changes indicating ischemia or acute injury pattern. HOSPITAL COURSE: Ms. Michelle was admitted as noted and worked up for right sided CVA. The patient was stable through hospitalization. She did have the left sided weakness and lower extremities and was set up to go to [facility], however, there was no bed and the patient wanted to go home on continued physical therapy. She was started back on anticoagulation prior to discharge with Xarelto. She was already on simvastatin. Her blood pressure on admission did show hypertension at 215/119. This was slowly controlled and allowed permissive hypertension through hospitalization and prior to discharge, the patient's blood pressure was down to 176/84 without any significant interventions required. The patient was showing no residual effects, in fact, she was showing some slight improvement in the lower extremity findings and was felt clinically stable enough to be discharged to continue with outpatient management. She was set up to see Dr. Rivera in followup. PLAN: Ms. Michelle was discharged on 02/26/[address] Rivera in followup on 03/02/19 at 11 AM. She was to resume her medications as instructed and to return to the hospital should she have any worsening of her symptoms. She had [facility] set up for physical therapy. Diet was diabetic diet as tolerated. Activities to be as per physical therapy. MEDICATIONS AT DISCHARGE: 1. Fergon 325 mg daily, no refills. 2. Xarelto 20 mg daily, #30, no refills. All other medications prior to discharge including her aspirin and simvastatin were continued. DISPOSITION: The patient was discharged home with home health. CONDITION AT DISCHARGE: Stable and improved. #[id number] [facility]
== END 2019-02-26 15:45 | disposition home health service (06) | DRG 65 ==
LOC: ER 18:33 → MS 02-24 00:22 → OBSVTOIN 02-26 11:13
PROVIDERS: ADMIT Nurse Practitioner Family; ATTEND Nurse Practitioner Family
PROC: B32T1ZZ Computerized Tomography (CT Scan) of Left Pulmonary Artery using Low Osmolar Contrast (ICD-10-PCS; 2019-02-23)
PROC: B3201ZZ Computerized Tomography (CT Scan) of Thoracic Aorta using Low Osmolar Contrast (ICD-10-PCS; 2019-02-23)
PROC: B32S1ZZ Computerized Tomography (CT Scan) of Right Pulmonary Artery using Low Osmolar Contrast (ICD-10-PCS; 2019-02-23)
PROC: B3251ZZ Computerized Tomography (CT Scan) of Bilateral Common Carotid Arteries using Low Osmolar Contrast (ICD-10-PCS; principal; 2019-02-24)
PROC: B32G1ZZ Computerized Tomography (CT Scan) of Bilateral Vertebral Arteries using Low Osmolar Contrast (ICD-10-PCS; 2019-02-24)
PROC: B32R1ZZ Computerized Tomography (CT Scan) of Intracranial Arteries using Low Osmolar Contrast (ICD-10-PCS; 2019-02-24)
PROC: B3281ZZ Computerized Tomography (CT Scan) of Bilateral Internal Carotid Arteries using Low Osmolar Contrast (ICD-10-PCS; 2019-02-24)
DX: I63.441 Cerebral infarction due to embolism of right cerebellar artery (principal); I16.1 Hypertensive emergency; G83.14 Monoplegia of lower limb affecting left nondominant side; T45.516A Underdosing of anticoagulants, initial encounter; Z91.128 Patient's intentional underdosing of medication regimen for other reason; Y92.009 Unspecified place in unspecified non-institutional (private) residence as the place of occurrence of the external cause; I10 Essential (primary) hypertension; I71.4 Abdominal aortic aneurysm, without rupture; D50.9 Iron deficiency anemia, unspecified; E11.9 Type 2 diabetes mellitus without complications; J44.9 Chronic obstructive pulmonary disease, unspecified; Z86.718 Personal history of other venous thrombosis and embolism; Z86.711 Personal history of pulmonary embolism; Z79.4 Long term (current) use of insulin; Z79.899 Other long term (current) drug therapy; Z96.651 Presence of right artificial knee joint; Z94.7 Corneal transplant status; Z87.891 Personal history of nicotine dependence; Z88.5 Allergy status to narcotic agent; Z88.8 Allergy status to other drugs, medicaments and biological substances; Z79.891 Long term (current) use of opiate analgesic; R29.6 Repeated falls

== ENCOUNTER 2019-03-10 14:33 | Emergency (ER) | payer MEDICARE ==
[2019-03-10] MEDS ORDERED: SODIUM CHLORIDE 0.9% (FLUSH) 10 ML SYG IV PRN (15:06)
--- NOTE | 2019-03-10 15:57 | CT ---
EXAM DESCRIPTION: Head: Computed Tomography. CLINICAL HISTORY: ACUTE ONSET RUE NUMBNESS AND TINGLING. COMPARISON: CTA of the head 02/24/2019. TECHNIQUE: Non-helical axial scans through the skull and brain, at 2.5 x 20 mm intervals, non-contrast. Coronal and sagittal 2.0 mm reconstructions. Total Exam DLP: 859.97 mGy-cm. This exam was performed according to our departmental dose-optimization program which includes automated exposure control, adjustment of the mA and/or kV according to patient size and/or use of iterative reconstruction technique; to reduce radiation dose to as low as reasonably achievable (ALARA). FINDINGS: No hemorrhage, no mass-effect, and no midline shift. Bilateral multiple regions of periventricular white matter low-density involving the vinson radiata in the bilateral centrum semiovale. 2 small focal densities in the anterior and lateral right basal ganglia, and external capsule, which could represent a cyst or old infarction and ischemia. Not associated with mass effect or hemorrhage. Visible on the prior study. Vascular calcifications anterior circulation.; physiologic calcifications in the pineal gland and choroid plexus. No effacement or displacement of the ventricles, CSF spaces, or subdural spaces. Ventricles are mildly enlarged but stable. No extra axial fluid collection or hemorrhage. No gross abnormalities of the bony calvarium. Included paranasal sinuses and mastoid air cells are well - aerated. IMPRESSION: 1. No hemorrhage, no mass effect, no midline shift. Old ischemia or infarction, and possible cyst right basal and external capsule. Bilateral low-density white matter in the centrum semiovale and vinson radiata most likely related to cerebral microvascular disease, and/or aging. Stable since the prior study. 2. CT scans are insensitive for detecting small CVAs in the first 24 hours after onset. Evaluation of the brain stem is also limited. If symptoms persist, consider NON-EMERGENT MRI scan of the brain with diffusion imaging. Electronically signed by: Karri Cabrera MD 03/10/2019 3:54 PM CDT
--- NOTE | 2019-03-10 16:03 | RAD ---
EXAM DESCRIPTION: Chest,1 View: CR/DR/XR. CLINICAL HISTORY: 68 years Female ACUTE ONSET RUE NUMBNESS AND TINGLING. COMPARISON: 2 view chest x-ray 07/13/2013. TECHNIQUE: ONE VIEW PORTABLE. AP 1516 hours, upright position. FINDINGS: Perihilar peribronchial wall cuffing is stable. No consolidation, no pleural effusion, no pneumothorax. Heart is not enlarged. Pulmonary vascularity is not increased. No gross bony thoracic abnormalities. Large body habitus. IMPRESSION: Stable chronic bronchitis or recurrent bronchitis or viral pneumonitis. Bacterial pneumonia is unlikely. Electronically signed by: Karri Cabrera MD 03/10/2019 4:01 PM CDT
[2019-03-10] MEDS ORDERED: cloNIDine HCL 0.1 MG TAB PO ONE ×2 (16:05→17:19)
[2019-03-10 17:06] VITALS: O2SAT 95
--- NOTE | 2019-03-10 18:29 | ED.PDOC ---
History of Present Illness - General Chief Complaint: Blood Pressure Problem Stated Complaint: HTN x 2 weeks, PINEDA x two days Time Seen by Provider: 03/10/19 15:04 Source: patient Exam Limitations: no limitations - History of Present Illness Initial Comments: HTN. NUMBNESS AND TINGLING IN RUE SINCE YESTERDAY. PT STATES A FEW WEEKS AGO SHE FELL, HIT HER HEAD, ER SHOWED BLOOD CLOT IN HEAD AND LLE WEAKNESS. THIS RESOLVED AND PT THINKS SHE WAS TOLD IT WAS A TIA. Timing/Duration: 24 hours Severity: moderate Improving Factors: nothing Worsening Factors: nothing Associated Symptoms: denies symptoms Allergies/Adverse Reactions: Allergies Codeine Allergy (Verified 03/10/19 15:53) Fexofenadine [From Isabela] Allergy (Verified 03/10/19 15:53) Home Medications: Ambulatory Orders Lisinopril 40 mg PO DAILY@0700 03/25/17 Albuterol Sulfate Nebs [Proventil Nebs] 0.083 % NEB QID #0 02/24/19 Cyclobenzaprine HCl [Flexeril] 10 mg PO BEDTIME PRN #0 02/24/19 Dchunrbyrlh-Uppzqhwhkvfg-Wpmvz [Trelegy Ellipta 100-62.5-25 Mcg/INH] 1 puff INH DAILY #0 02/24/19 HYDROcodone 10MG/APAP 325MG [[place] 10/325] 1 tab PO Q4H PRN #0 02/24/19 Metformin HCl [Metformin Hydrochloride] 1,000 mg PO BID #0 02/24/19 Simvastatin 40 mg PO BEDTIME #0 02/24/19 Ferrous Gluconate [Fergon] 325 mg PO DAILY tab 02/26/19 Rivaroxaban [Xarelto] 20 mg PO DAILY #30 tab 02/26/19 Clonidine HCl 0.1 mg PO BID 03/10/19 Nebivolol HCl [Bystolic] 5 mg PO DAILY 03/10/19 Review of Systems - Review of Systems Constitutional: States: no symptoms reported EENTM: States: no symptoms reported Respiratory: States: no symptoms reported Cardiology: Denies: chest pain, palpitations Gastrointestinal/Abdominal: States: no symptoms reported. Denies: abdominal pain Genitourinary: States: no symptoms reported Musculoskeletal: States: no symptoms reported Skin: States: no symptoms reported Neurological: States: tingling - R FINGER TIPS. Endocrine: States: no symptoms reported Hematologic/Lymphatic: States: no symptoms reported All other Systems: Reviewed and Negative Past Medical History (General) - Patient Medical History Hx Seizures: No Hx Stroke: Yes - TIA 3 weeks ago Hx Asthma: No Hx of COPD: Yes Hx Cardiac Disorders: Yes Hx Congestive Heart Failure: No Hx Pacemaker: No Hx Hypertension: Yes Hx Diabetes: Yes Hx MRSA: No Surgical History: other - Social History Hx Tobacco Use: Yes Hx Alcohol Use: No Hx Substance Use: No Hx Physical Abuse: No Hx Emotional Abuse: No - Female History Patient is a Female of Child Bearing Age (10 -59 yrs old): No Patient : No Family Medical History - Family History Father Family History: Unknown Living Status: Hx Family Hypertension: Yes - mother, father Hx Cardiac Disease: Yes - father Hx Family Cancer: Yes - mother Hx Family;Other: emphysema - mother Physical Exam - Physical Exam General Appearance: Alert, No apparent distress Eye Exam: bilateral normal Ears, Nose, Throat: hearing grossly normal, normal ENT inspection, normal pharynx Neck: non-tender, full range of motion, supple, normal inspection Respiratory: chest non-tender, lungs clear Cardiovascular/Chest: normal peripheral pulses, regular rate, rhythm Peripheral Pulses: radial,right: 2+, radial,left: 2+ Gastrointestinal/Abdominal: normal bowel sounds, non tender, soft, no organomegaly, no pulsatile mass - PT HAS H/O AAA, FOR WHICH SEES A . Back Exam: no CVA tenderness, no vertebral tenderness Extremity: normal range of motion, non-tender, normal inspection, no pedal edema, no calf tenderness, normal capillary refill Neurologic: plush cutter II-XII nml as tested, no motor/sensory deficits, alert, normal mood/affect, oriented x 3 Skin Exam: normal color, warm/dry Lymphatic: no adenopathy Progress - Progress Progress: 03/10/19 18:33 CT HEAD NEG FOR ACUTE STROKE. POS OLD ISCHEMIA. NOTE: PT IS ON XARELTO FOR H/O DVT AND H/O ISCHEMIC STROKE. CBC = ANEMIA LABS NEG/WNL: CMP, UA, EKG, CARD ENZ, CXR (NONCONTRIBUTORY; NO RESPIRATORY SX THUS NO BRONCHITIS CONCERN). BP SAFELY LOWERED BY 15% IN ER. 213/107; CLONIDINE 0.2 MG GIVEN; BP 208/92; CLONIDINE 0.4 MG GIVEN; BP 183/94. INCREASED BYSTOLIC DOSE AND F/U W/ PCP THIS WEEK. HYPERTENSIVE URGENCY BUT NO END-ORGAN DAMAGE. 03/10/19 18:38 - EKG/XRAY/CT EKG: Sinus Departure - Departure Clinical Impression: Hypertensive urgency, Microcytic hypochromic anemia, Hx TIA/stroke w/o resid, Paresthesia of right upper extremity Disposition: Discharge to Home or Self Care Condition: Good Departure Forms: ED Discharge - Pt. Copy, Patient Portal Self Enrollment Diet: low salt diet Activity: increase activity as tolerated Referrals: CINTHIA MEDRANO MD [Primary Care Provider] - 1-5 Days Home Medications: Ambulatory Orders Lisinopril 40 mg PO DAILY@0700 03/25/17 Albuterol Sulfate Nebs [Proventil Nebs] 0.083 % NEB QID #0 02/24/19 Cyclobenzaprine HCl [Flexeril] 10 mg PO BEDTIME PRN #0 02/24/19 Aynutsvvyig-Fegquyimwvtr-Ebeio [Trelegy Ellipta 100-62.5-25 Mcg/INH] 1 puff INH DAILY #0 02/24/19 HYDROcodone 10MG/APAP 325MG [[place] 10/325] 1 tab PO Q4H PRN #0 02/24/19 Metformin HCl [Metformin Hydrochloride] 1,000 mg PO BID #0 02/24/19 Simvastatin 40 mg PO BEDTIME #0 02/24/19 Ferrous Gluconate [Fergon] 325 mg PO DAILY tab 02/26/19 Rivaroxaban [Xarelto] 20 mg PO DAILY #30 tab 02/26/19 Clonidine HCl 0.1 mg PO BID 03/10/19 Nebivolol HCl [Bystolic] 5 mg PO DAILY 03/10/19 Additional Instructions: Please double your Bystolic dose by increasing from 5 mg per day, up to 10 mg per day. Please see your regular doctor this week to recheck your blood pressure and adjust medications as appropriate.
[2019-03-10 18:58] VITALS: BP 170/71; TEMP 99
== END 2019-03-10 18:45 | disposition home or self-care (01) ==
LOC: ER 14:33
DX: I16.0 Hypertensive urgency (principal); D50.9 Iron deficiency anemia, unspecified; I69.331 Monoplegia of upper limb following cerebral infarction affecting right dominant side; J44.9 Chronic obstructive pulmonary disease, unspecified; I51.9 Heart disease, unspecified; E11.9 Type 2 diabetes mellitus without complications; Z79.01 Long term (current) use of anticoagulants; Z86.718 Personal history of other venous thrombosis and embolism; Z79.899 Other long term (current) drug therapy; Z79.84 Long term (current) use of oral hypoglycemic drugs; Z88.5 Allergy status to narcotic agent; Z88.8 Allergy status to other drugs, medicaments and biological substances

== ENCOUNTER 2019-09-21 23:57 | Emergency (ER) | payer MEDICARE ==
[2019-09-22] MEDS ORDERED: SODIUM CHLORIDE 0.9% (FLUSH) 10 ML SYG IV PRN (00:05)
[2019-09-22] MEDS ORDERED: SODIUM CHLORIDE 0.9% 1000ML 1,000 ML IVS ONE (00:07)
--- NOTE | 2019-09-22 00:07 | ED.PDOC ---
History of Present Illness - General Chief Complaint: Abdominal Pain Stated Complaint: lower abdomen pain Time Seen by Provider: 09/22/19 00:05 Source: patient - History of Present Illness Initial Comments: 68 yo female with PMH of infrarenal AAA, former smoker who is bib EMS from home for cc of lower abdominal pains. Sudden onset approx 45 mins PATIENT SERVICE COORDINATOR while sleeping, woke her up, reports 10/10 constant sharp/stabbing pains which begin in the vaginal area and radiate to the RLQ and up the middle of the abdomen, no exacerbating or alleviating factors, nothing tried for pain relief, no hx of similar pains. Has had hx of hysterectomy but no other abdominal surgeries. Pt's most recent CTA A/P here from 02/25/19 revealed a 4.46 cm infrarenal AAA. Also reports nausea with 1 episode of NBNB emesis PATIENT SERVICE COORDINATOR. Denies any fevers, chills, cough, diarrhea. Has chronic urinary incontinence, unchanged from usual. Allergies/Adverse Reactions: Allergies Codeine Allergy (Verified 03/10/19 15:53) Fexofenadine [From Isabela] Allergy (Verified 03/10/19 15:53) Home Medications: Ambulatory Orders Lisinopril 40 mg PO DAILY@0700 03/25/17 Albuterol Sulfate Nebs [Proventil Nebs] 0.083 % NEB QID #0 02/24/19 Cyclobenzaprine HCl [Flexeril] 10 mg PO BEDTIME PRN #0 02/24/19 HYDROcodone 10MG/APAP 325MG [[place] 10/325] 1 tab PO Q4H PRN #0 02/24/19 Metformin HCl [Metformin Hydrochloride] 1,000 mg PO BID #0 02/24/19 Simvastatin 40 mg PO BEDTIME #0 02/24/19 Ferrous Gluconate [Fergon] 325 mg PO DAILY tab 02/26/19 Ciprofloxacin HCl [Ciprofloxacin Hydrochlori] 500 mg PO BID 7 Days #14 tab 09/22/19 Ondansetron Odt [Zofran ODT] 8 mg PO Q8H PRN 7 Days #10 tab 09/22/19 Tamsulosin [Flomax] 0.4 mg PO DAILY 7 Days #7 cap 09/22/19 Tramadol HCl [Tramadol Hydrochloride] 50 mg PO Q6H PRN 7 Days #15 tab 09/22/19 Review of Systems - Review of Systems Review of Systems: 09/22/19 00:31 as per HPI All other Systems: Reviewed and Negative Past Medical History (General) - Patient Medical History Hx Seizures: No Hx Stroke: Yes - TIA 3 weeks ago Hx Asthma: No Hx of COPD: Yes Hx Cardiac Disorders: Yes Hx Congestive Heart Failure: No Hx Pacemaker: No Hx Hypertension: Yes Hx Diabetes: Yes Hx MRSA: No - Social History Hx Tobacco Use: Yes Hx Alcohol Use: No Hx Substance Use: No Hx Physical Abuse: No Hx Emotional Abuse: No - Female History Patient : No Family Medical History - Family History Father Family History: Unknown Living Status: Hx Family Hypertension: Yes - mother, father Hx Cardiac Disease: Yes - father Hx Family Cancer: Yes - mother Hx Family;Other: emphysema - mother Physical Exam - Physical Exam General Appearance: Alert, No apparent distress Eye Exam: bilateral normal Ears, Nose, Throat: hearing grossly normal, normal ENT inspection, normal pharynx Neck: non-tender, full range of motion, supple, normal inspection Respiratory: chest non-tender, lungs clear, normal breath sounds, no respiratory distress Cardiovascular/Chest: normal peripheral pulses, regular rate, rhythm, no edema, no gallop, no murmur Peripheral Pulses: radial,right: 2+, radial,left: 2+ Gastrointestinal/Abdominal: soft, tenderness - marked ttp with guarding to entire lower abdominal region Progress - Progress Progress: 09/22/19 12:50 Acute abdominal pain -concern for possible AAA rupture vs impending rupture given marked HTN and sudden onset diffuse severe abd pain. Consider also UTI, kidney stones, diverticulitis, abscess, other -stat CTA A/P and CT chest -labs, UA, place PIV, pain control, HTN control, nausea control -morphine 6 mg IV stat 09/22/19 01:45 -Delay in read from CTA Abdomen. I initially had concerns for possible AAA dissection vs impending rupture and called to discuss with vascular surgeon Dr. Yates for possible emergent transfer. While discussing on the phone, the CT was read as no evidence of rupture or dissection of AAA and that it appeared stable in nature. Pt was also noted to have 2x2 mm distal ureteral stone with associated right-sided mild hydronephrosis. This diagnosis is fitting with her acute presensation and description of her pain. Her UA also is noted to have 20-30 RBC, 3-5 WBC. -Serum WBC 9,100 with 68% segs and no bands, lactate 1.1. Remainder of labs unremarkable. BUN 20, Cr 0.8. -For Right ureteral stone, given that it is only 2 mm suspect high likelihood of spontaneous passage of stone with medical therapy alone. Will give Rocephin 1 g IV & Flomax here. -Pt remains with elevated BP 200s/90s following Labetalol 10 mg IV. Will give another dose. She reports her pain is markedly improved. 09/22/19 03:30 -Pt's BP finally improved and stable following Labetalol 40 mg IV along with clonidine 0.2 mg PO and pain medications -will send home with Flomax, Cipro, Tramadol PRN, Zofran PRN in fair stable condition, return warnings discussed at length Toribio Greenfield MD Billing #[id number] 09/22/19 00:05 Sodium Chloride 0.9% (Flush) [Saline Flush Syringe] 10 ml IV PRN PRN 09/22/19 00:06 IV Care:Saline Lock per Protoc QSHIFT 09/22/19 00:25 Hold Metformin x 48Hrs [id number] 09/22/19 01:59 cefTRIAXone SODIUM [Rocephin] 1 gm Sodium Chl 0.9% 50Ml Min-Bag+ [NS 50ml MINI-BAG+] 50 ml IVPB ONCE Laboratory Results - last 24 hr 09/22/19 09/22/19 09/22/19 00:06 00:06 00:06 WBC 9.1 RBC 4.44 Hgb 8.6 L Hct 29.3 L MCV 65.9 L MCH 19.4 L MCHC 29.4 L RDW 19.2 H Plt Count 254 MPV 8.4 Absolute Neuts (auto) 6.20 Absolute Lymphs (auto) 2.00 Absolute Monos (auto) 0.70 Absolute Eos (auto) 0.20 Absolute Basos (auto) 0.00 Neutrophils % 68.1 Lymphocytes % 22.2 Monocytes % 7.2 Eosinophils % 2.1 Basophils % 0.4 Normal RBC Morphology 4+aniso Sodium 142 Potassium 3.5 L Chloride 104 Carbon Dioxide 26 Anion Gap 15.5 BUN 20 H Creatinine 0.81 BUN/Creatinine Ratio 24.7 H Random Glucose 272 H Serum Osmolality 295.4 H Lactic Acid 1.1 Calcium 9.2 Total Bilirubin 0.4 Direct Bilirubin < 0.1 Indirect Bilirubin 0.3 AST 25 ALT 16 Alkaline Phosphatase 120 Troponin I Serum Total Protein 7.0 Albumin 3.9 Lipase 44 Urine Color Urine Appearance Urine pH Ur Specific [place] Urine Protein Urine Glucose (UA) Urine Ketones Urine Blood Urine Nitrite Urine Bilirubin Urine Urobilinogen Ur Leukocyte Esterase Urine RBC Urine WBC Ur Epithelial Cells Urine Bacteria Patient ABO/Rh Antibody Screen 09/22/19 09/22/19 09/22/19 00:30 00:31 01:11 WBC RBC Hgb Hct MCV MCH MCHC RDW Plt Count MPV Absolute Neuts (auto) Absolute Lymphs (auto) Absolute Monos (auto) Absolute Eos (auto) Absolute Basos (auto) Neutrophils % Lymphocytes % Monocytes % Eosinophils % Basophils % Normal RBC Morphology Sodium Potassium Chloride Carbon Dioxide Anion Gap BUN Creatinine BUN/Creatinine Ratio Random Glucose Serum Osmolality Lactic Acid Calcium Total Bilirubin Direct Bilirubin Indirect Bilirubin AST ALT Alkaline Phosphatase Troponin I 0.03 Serum Total Protein Albumin Lipase Urine Color Yellow Urine Appearance Clear Urine pH 6.5 Ur Specific [place] 1.025 Urine Protein Negative Urine Glucose (UA) 500 H Urine Ketones Trace Urine Blood Trace-lysed H Urine Nitrite Negative Urine Bilirubin Negative Urine Urobilinogen 0.2 Ur Leukocyte Esterase Negative Urine RBC 20-30 H Urine WBC 3-5 H Ur Epithelial Cells 3-5 Urine Bacteria 0 Patient ABO/Rh O POSITIVE Antibody Screen Negative Departure - Departure Clinical Impression: Ureterolithiasis Time of Disposition: 04:16 Disposition: Discharge to Home or Self Care Condition: Fair Departure Forms: ED Discharge - Pt. Copy, Patient Portal Self Enrollment Instructions: Kidney Stones (DC) Diet: resume usual diet Referrals: CINTHIA MEDRANO MD [Primary Care Provider] - 1-5 Days Prescriptions: Ciprofloxacin HCl [Ciprofloxacin Hydrochlori] 500 mg PO BID 7 Days #14 tab Ondansetron Odt [Zofran ODT] 8 mg PO Q8H PRN 7 Days #10 tab PRN Reason: Nausea Tamsulosin [Flomax] 0.4 mg PO DAILY 7 Days #7 cap Tramadol HCl [Tramadol Hydrochloride] 50 mg PO Q6H PRN 7 Days #15 tab PRN Reason: Pain Home Medications: Ambulatory Orders Lisinopril 40 mg PO DAILY@0700 03/25/17 Albuterol Sulfate Nebs [Proventil Nebs] 0.083 % NEB QID #0 02/24/19 Cyclobenzaprine HCl [Flexeril] 10 mg PO BEDTIME PRN #0 02/24/19 HYDROcodone 10MG/APAP 325MG [[place] 10/325] 1 tab PO Q4H PRN #0 02/24/19 Metformin HCl [Metformin Hydrochloride] 1,000 mg PO BID #0 02/24/19 Simvastatin 40 mg PO BEDTIME #0 02/24/19 Ferrous Gluconate [Fergon] 325 mg PO DAILY tab 02/26/19 Ciprofloxacin HCl [Ciprofloxacin Hydrochlori] 500 mg PO BID 7 Days #14 tab 09/22/19 Ondansetron Odt [Zofran ODT] 8 mg PO Q8H PRN 7 Days #10 tab 09/22/19 Tamsulosin [Flomax] 0.4 mg PO DAILY 7 Days #7 cap 09/22/19 Tramadol HCl [Tramadol Hydrochloride] 50 mg PO Q6H PRN 7 Days #15 tab 09/22/19 Additional Instructions: Remain well-hydrated and advance diet and activity level as tolerated. Continue Flomax and Cipro as prescribed and take pain meds and Zofran as needed. Do not drive while taking pain medications. Return if symptoms worsen or if pain is poorly controlled at home or if other concerning symptoms develop such as change or worsening of abdominal pain, sustained elevated blood pressure, chest pain, shortness of breath, etc... Follow up with your primary care doctor in next 3-5 days is recommended for repeat evaluation or sooner as needed.
[2019-09-22] MEDS ORDERED: MORPHINE SULFATE INJ 10 MG/ML VIAL IV ONE ×3 (00:25→03:02)
[2019-09-22 00:28] VITALS: TEMP 99
[2019-09-22] MEDS ORDERED: LABETALOL INJ 5 MG/ML VIAL IV ONE ×4 (01:17→02:29)
--- NOTE | 2019-09-22 01:18 | CT ---
CT CHEST WITH CONTRAST. CLINICAL HISTORY: acute severe abdominal pain, hx of AAA COMPARISON: CTA chest 02/23/2019. TECHNIQUE: Axial CT imaging of the chest performed utilizing intravenous contrast. Reformatted coronal and sagittal images obtained. This exam was performed according to our departmental dose-optimization program which includes automated exposure control, adjustment of the mA and/or kV according to patient size and/or use of iterative reconstruction technique FINDINGS: HEART/GREAT VESSELS: Heart is normal in size. Normal caliber thoracic aorta and main pulmonary artery. There is moderate diffuse aortic atherosclerosis. Coronary artery calcifications are present. MEDIASTINUM AND HUGO: Scattered nonenlarged mediastinal lymph nodes. LUNGS/PLEURA: Mild bilateral bronchial thickening. No consolidation or edema. There are are centrilobular lucencies bilaterally due to emphysema. There is a fat-containing posterior medial right hemidiaphragm hernia with fat protruding from the right retroperitoneum. CHEST WALL/SOFT TISSUES: Imaged portions of the thyroid appear normal. No axillary adenopathy. Moderate mid to lower thoracic degenerative change. Intact sternum. Remaining bony thorax appears intact. UPPER ABDOMEN: Unremarkable spleen, imaged pancreas, adrenal glands. There is medial right perinephric edema, not fully imaged. Very mild fatty liver infiltration. A few colonic diverticula present. IMPRESSION: 1. Emphysema with bronchitis. 2. Right posterior medial hemidiaphragm fat-containing hernia. 3. Mild medial right perinephric edema, not fully imaged. Please correlate with CTA abdomen performed in conjunction with this exam. Electronically signed by: Jacqui Presley DO 09/22/2019 1:17 AM ASSOCIATE FI[employer] SERVICE ENGINE[employer]
--- NOTE | 2019-09-22 01:34 | CT ---
EXAM: CT abdomen angiography with IV contrast CLINICAL DATA: 68-year-old female with acute severe abdominal pain and history of AAA. TECHNICAL DATA: Following the administration of intravenous contrast, multiple high-resolution axial images of the abdomen and pelvis were performed followed by sagittal and coronal reconstructed images. Coronal MIP images were also performed.The CT study is performed according to ALARA (as low as reasonably achievable) or ALARA/IMAGE GENTLY, with automatic adjustment of mA and/or kV according to patient size. Performed on: 09/22/2019 at 12:54 AM COMPARISONS: Prior CT abdomen and pelvis performed on 02/25/2019 and 11/17/2009 FINDINGS: CTA ABDOMEN AND PELVIS: Lungs: There is mild diffuse centrilobular emphysema with minimal fibrosis and/or atelectasis in the lung bases. There is a fat-containing posteromedial right sided Bochdalek hernia. Liver: The liver is mildly enlarged and measures approximately 18.4 cm in craniocaudal dimension. No focal hepatic abnormalities are identified. Liver attenuation is within normal limits. Spleen:The spleen is normal is size, configuration and attenuation. Gallbladder and bile duct: The gallbladder is well distended and contains gallstones. There is no biliary ductal dilatation. Pancreas: The pancreas is grossly normal in size and configuration. Adrenal Glands:The adrenal glands are normal in size and configuration. Kidneys:The kidneys are normal in size and configuration. There is mild right-sided hydronephrosis and hydroureter secondary to a 2 x 2 x 2 mm calcification in the distal right ureter above the ureterovesical junction (series 2, image 157). No renal calculi are appreciated.. No definite solid or cystic renal mass lesions are identified. Stomach:The stomach is grossly normal. There is no definite hiatal hernia. Bowel:The bowel gas pattern is non specific and non obstructive. There is scattered colonic diverticulosis. Appendix: The appendix is not clearly delineated on this examination. Free air:There is no evidence of free air. Free fluid: There is no evidence of free fluid. Vasculature: There are atherosclerotic calcifications along the aorta and major branch vessels. Again demonstrated is a 4.5 cm infrarenal abdominal aortic aneurysm. There is no evidence of aortic dissection. The inferior vena cava is grossly unremarkable. Lymphadenopathy: No pathologic lymphadenopathy is identified. Bladder: The bladder is well distended and smooth in contour. Reproductive: The uterus is surgically absent. Bones: No acute osseous abnormalities are identified. There is degenerative disc disease throughout the thoracolumbar spine and there are vacuum discs at multiple levels. Soft tissues: No focal soft tissue abnormalities are identified. IMPRESSION: 1. Grossly stable 4.5 cm infrarenal abdominal aortic aneurysm. Recommend follow-up every six months and vascular consultation. 2. 2 x 2 x 2 mm calcification in the distal right ureter above the ureterovesical junction resulting in mild right-sided hydronephrosis and hydroureter. 3. Cholelithiasis without evidence of biliary ductal dilatation. 4. Scattered colonic diverticulosis. 5. Centrilobular emphysema. 6. Fat-containing posterior medial right-sided Bochdalek hernia. 7. Remote hysterectomy. 8. Degenerative changes of the skeletal and vascular structures. Electronically signed by: Hannah Arellano DO 09/22/2019 1:32 AM [facility]
[2019-09-22] MEDS ORDERED: cefTRIAXone SODIUM 1 GM in SODIUM CHL 0.9% 50ML MIN-BAG+ 50 ML IVPB ONE (01:59)
[2019-09-22] MEDS ORDERED: TAMSULOSIN 0.4 MG CAP PO ONE (01:59)
[2019-09-22] MEDS ORDERED: cefTRIAXone SODIUM 1 GM VIAL ONE (02:03)
[2019-09-22] MEDS ORDERED: SODIUM CHL 0.9% 50ML MIN-BAG+ 50 ML IVPB ONE (02:04)
[2019-09-22] MEDS ORDERED: KETOROLAC TROMETHAMINE INJ 30 MG/ML VIAL IV ONE (03:02)
[2019-09-22] MEDS ORDERED: cloNIDine HCL 0.1 MG TAB PO ONE (03:02)
[2019-09-22] MEDS ORDERED: PROMETHAZINE HCL INJ 12.5 MG in SODIUM CHLORIDE 0.9% 50ML 50 ML IVPB ONE (03:19)
[2019-09-22] MEDS ORDERED: SODIUM CHLORIDE 0.9% 50ML 50 ML ONE (03:23)
[2019-09-22] MEDS ORDERED: PROMETHAZINE HCL INJ 25 MG/ML VIAL ONE (03:23)
[2019-09-22 03:31] VITALS: O2SAT 94
[2019-09-22 04:00] VITALS: BP 120/73
[2019-09-22] MEDS ORDERED: traMADol HCL 50 MG (ER DISP) # 6 TABS PO ONE (04:20)
[2019-09-22] MEDS ORDERED: ONDANSETRON ODT (ER DISP) 8 MG TAB PO ONE (04:20)
== END 2019-09-22 04:53 | disposition home or self-care (01) ==
LOC: ER 23:57
DX: N13.2 Hydronephrosis with renal and ureteral calculous obstruction (principal); I71.4 Abdominal aortic aneurysm, without rupture; J44.9 Chronic obstructive pulmonary disease, unspecified; I51.9 Heart disease, unspecified; I10 Essential (primary) hypertension; E11.9 Type 2 diabetes mellitus without complications; Z86.73 Personal history of transient ischemic attack (TIA), and cerebral infarction without residual deficits; Z87.891 Personal history of nicotine dependence; Z79.899 Other long term (current) drug therapy; Z79.84 Long term (current) use of oral hypoglycemic drugs; Z88.5 Allergy status to narcotic agent; Z88.8 Allergy status to other drugs, medicaments and biological substances
CPT/HCPCS: 36415; 71260; 74175; 80048; 80076; 81001; 83605; 83690; 84484; 85025; 86850; 86900; 86901; A4216; J0696; J1885; J2270; J2550; J7030; J7050

== ENCOUNTER → 2019-12-08 | Outpatient (CLI) | payer MEDICARE | LOC: GMAE 12:00 | PROVIDERS: ATTEND Family Medicine | DX: D50.9 Iron deficiency anemia, unspecified (principal); I10 Essential (primary) hypertension; E11.51 Type 2 diabetes mellitus with diabetic peripheral angiopathy without gangrene ==

== ENCOUNTER 2020-08-06 17:53 | Emergency (ER) | payer MEDICARE ==
[2020-08-06] MEDS ORDERED: HYDROcodone 10MG/APAP 325MG 1 EA TAB PO ONE (18:34)
[2020-08-06] MEDS ORDERED: cloNIDine HCL 0.1 MG TAB PO ONE (18:35)
--- NOTE | 2020-08-06 18:38 | ED.PDOC ---
History of Present Illness - General Chief Complaint: Lower Extremity Injury Time Seen by Provider: 08/06/20 18:34 Source: patient, RN notes reviewed, Vital Signs reviewed - History of Present Illness Initial Comments: The patient is a 69 year old with history of significant for osteoarthritis, diabetes, hypertension. she complains of right hip pain. She states that she has had pain for over a month in this area. She is unable to identify any particular trauma or inciting event. She had seen her PCP and was told that she likely had bursitis and arthritis. She was taking aleve with good response and states that she has been scheduled for a hip injection. Today she complains of worsening of her hip pain without any new trauma or injury. No numbness or tingling. Pain is worse with movement. No other complaints at this time. Allergies/Adverse Reactions: Allergies Codeine Allergy (Verified 03/10/19 15:53) Fexofenadine [From Isabela] Allergy (Verified 03/10/19 15:53) Home Medications: Ambulatory Orders Lisinopril 40 mg PO DAILY@0700 03/25/17 Albuterol Sulfate Nebs [Proventil Nebs] 0.083 % NEB QID #0 02/24/19 Cyclobenzaprine HCl [Flexeril] 10 mg PO BEDTIME PRN #0 02/24/19 HYDROcodone 10MG/APAP 325MG [[place] 10/325] 1 tab PO Q4H PRN #0 02/24/19 Metformin HCl [Metformin Hydrochloride] 1,000 mg PO BID #0 02/24/19 Simvastatin 40 mg PO BEDTIME #0 02/24/19 Ferrous Gluconate [Fergon] 325 mg PO DAILY tab 02/26/19 Ciprofloxacin HCl [Ciprofloxacin Hydrochlori] 500 mg PO BID 7 Days #14 tab 09/22/19 Ondansetron Odt [Zofran ODT] 8 mg PO Q8H PRN 7 Days #10 tab 09/22/19 Tamsulosin [Flomax] 0.4 mg PO DAILY 7 Days #7 cap 09/22/19 Tramadol HCl [Tramadol Hydrochloride] 50 mg PO Q6H PRN 7 Days #15 tab 09/22/19 Tramadol HCl 50 mg PO Q6HR #20 tab 08/06/20 Review of Systems - Review of Systems Constitutional: Denies: chills, fever EENTM: States: no symptoms reported Respiratory: Denies: cough, short of breath Cardiology: Denies: chest pain, palpitations Gastrointestinal/Abdominal: Denies: abdominal pain, diarrhea, nausea, vomiting Genitourinary: States: no symptoms reported Musculoskeletal: States: joint pain, muscle pain Skin: States: no symptoms reported Neurological: States: no symptoms reported Endocrine: States: no symptoms reported Hematologic/Lymphatic: States: no symptoms reported All other Systems: Reviewed and Negative Past Medical History (General) - Patient Medical History Hx Seizures: No Hx Stroke: Yes - TIA 3 weeks ago Hx Asthma: No Hx of COPD: Yes Hx Cardiac Disorders: Yes Hx Congestive Heart Failure: No Hx Pacemaker: No Hx Hypertension: Yes Hx Diabetes: Yes Hx MRSA: No - Social History Hx Tobacco Use: Yes Hx Alcohol Use: No Hx Substance Use: No Hx Physical Abuse: No Hx Emotional Abuse: No - Female History Patient : No Family Medical History - Family History Father Family History: Unknown Living Status: Hx Family Hypertension: Yes - mother, father Hx Cardiac Disease: Yes - father Hx Family Cancer: Yes - mother Hx Family;Other: emphysema - mother Physical Exam - Physical Exam General Appearance: Alert, No apparent distress, Other - uncomfortable Ears, Nose, Throat: hearing grossly normal, normal ENT inspection Neck: non-tender, full range of motion, supple Respiratory: lungs clear, normal breath sounds, no respiratory distress, no accessory muscle use Cardiovascular/Chest: normal peripheral pulses, regular rate, rhythm, no edema Peripheral Pulses: femoral,right: 2+, dorsalis pedis,right: 2+ Gastrointestinal/Abdominal: non tender, soft Extremity: normal range of motion, normal inspection, no pedal edema, no calf tenderness, normal capillary refill Neurologic: no motor/sensory deficits, alert, normal mood/affect, oriented x 3 Progress - Progress Progress: 08/06/20 19:31 Patient states that she is feeling better and would like to be discharged. Will continue outpatient pain management and she will follow up with her PCP. Home care instructions and return indications reviewed. - Results/Orders Results/Orders: MDM: The patient presents to the Emergency Department with right hip pain that has been ongoing for a month. She does not have any focal findings. She has normal neurovascular exam. There are normal femoral and DP pulses. Imaging does not show acute bony injury. She is ambulatory without assistance. No clinical findings concerning for septic joint. No other complaints at this time. Patient states that she did not take her BP medications today. She does not have any signs/symptoms of acute hypertensive emergency. Will continue outpatient pain management and she will follow up with her PCP. Home care instructions and return indications reviewed. Departure - Departure Clinical Impression: Essential hypertension Osteoarthritis of right hip Qualifiers: Osteoarthritis type: primary Qualified Code(s): M16.11 - Unilateral primary osteoarthritis, right hip Time of Disposition: 19:31 Disposition: Discharge to Home or Self Care Condition: Fair Departure Forms: ED Discharge - Pt. Copy, Patient Portal Self Enrollment Instructions: DI for Leg Pain, Osteoarthritis Diet: resume usual diet Activity: increase activity as tolerated Referrals: CINTHIA MEDRANO MD [Primary Care Provider] - 1-2 Weeks Prescriptions: Tramadol HCl 50 mg PO Q6HR #20 tab Home Medications: Ambulatory Orders Lisinopril 40 mg PO DAILY@0700 03/25/17 Albuterol Sulfate Nebs [Proventil Nebs] 0.083 % NEB QID #0 02/24/19 Cyclobenzaprine HCl [Flexeril] 10 mg PO BEDTIME PRN #0 02/24/19 HYDROcodone 10MG/APAP 325MG [[place] 10/325] 1 tab PO Q4H PRN #0 02/24/19 Metformin HCl [Metformin Hydrochloride] 1,000 mg PO BID #0 02/24/19 Simvastatin 40 mg PO BEDTIME #0 02/24/19 Ferrous Gluconate [Fergon] 325 mg PO DAILY tab 02/26/19 Ciprofloxacin HCl [Ciprofloxacin Hydrochlori] 500 mg PO BID 7 Days #14 tab 09/22/19 Ondansetron Odt [Zofran ODT] 8 mg PO Q8H PRN 7 Days #10 tab 09/22/19 Tamsulosin [Flomax] 0.4 mg PO DAILY 7 Days #7 cap 09/22/19 Tramadol HCl [Tramadol Hydrochloride] 50 mg PO Q6H PRN 7 Days #15 tab 09/22/19 Tramadol HCl 50 mg PO Q6HR #20 tab 08/06/20
--- NOTE | 2020-08-06 19:10 | RAD ---
EXAM: XR Right Hip With Pelvis When Performed, 2 or 3 Views CLINICAL HISTORY: The patient is 69 years old and is Female; right hip pain TECHNIQUE: Two views of the right hip with pelvis when performed. COMPARISON: No relevant prior studies available. FINDINGS: Bones/joints: Mild degenerative changes. No acute fracture. No dislocation. Soft tissues: Unremarkable. IMPRESSION: Mild degenerative changes. Electronically signed by: Catie Hoff MD 08/06/2020 7:08 PM RADIATION THERAPIST
[2020-08-06 20:38] VITALS: BP 221/111; TEMP 97.5; O2SAT 94
== END 2020-08-06 19:45 | disposition home or self-care (01) ==
LOC: ER 17:53
DX: M16.11 Unilateral primary osteoarthritis, right hip (principal); I10 Essential (primary) hypertension; J44.9 Chronic obstructive pulmonary disease, unspecified; E11.9 Type 2 diabetes mellitus without complications; I51.9 Heart disease, unspecified; Z86.73 Personal history of transient ischemic attack (TIA), and cerebral infarction without residual deficits; Z87.891 Personal history of nicotine dependence; Z79.899 Other long term (current) drug therapy; Z88.8 Allergy status to other drugs, medicaments and biological substances; Z88.5 Allergy status to narcotic agent

== ENCOUNTER 2020-08-13 22:39 | Emergency (ER) | payer MEDICARE ==
[2020-08-13] MEDS ORDERED: traMADol HCL 50 MG TAB PO ONE (23:00)
[2020-08-13] MEDS ORDERED: cloNIDine HCL 0.1 MG TAB PO ONE (23:00)
[2020-08-13] MEDS ORDERED: CYCLOBENZAPRINE HCL 10 MG TAB PO ONE (23:01)
--- NOTE | 2020-08-13 23:03 | ED.PDOC ---
History of Present Illness - General Chief Complaint: General Stated Complaint: Right Hip Pain Time Seen by Provider: 08/13/20 22:40 Source: patient Additional Information: Was seen here on [id number] about a week ago for similar complaints x-rays were obtained that showed arthritis and she was prescribed some pain medicine. She states that she did not take the pain medicine which started having pain today.Is also very hypertensive and states that she did not take her high blood pressure medicine - History of Present Illness Timing/Duration: 1-3 hours Severity: moderate Improving Factors: nothing Associated Symptoms: denies symptoms Allergies/Adverse Reactions: Allergies Codeine Allergy (Verified 03/10/19 15:53) Fexofenadine [From Isabela] Allergy (Verified 03/10/19 15:53) Home Medications: Ambulatory Orders RX: Lisinopril 40 mg PO DAILY@0700 03/25/17 Cyclobenzaprine HCl [Flexeril] 10 mg PO BEDTIME PRN #0 02/24/19 HYDROcodone 10MG/APAP 325MG [[place] 10/325] 1 tab PO Q4H PRN #0 02/24/19 Metformin HCl [Metformin Hydrochloride] 1,000 mg PO BID #0 02/24/19 RX: Albuterol Sulfate Nebs [Proventil Nebs] 0.083 % NEB QID #0 02/24/19 RX: Simvastatin 40 mg PO BEDTIME #0 02/24/19 RX: Ferrous Gluconate [Fergon] 325 mg PO DAILY tab 02/26/19 Ondansetron Odt [Zofran ODT] 8 mg PO Q8H PRN 7 Days #10 tab 09/22/19 RX: Ciprofloxacin HCl [Ciprofloxacin Hydrochlori] 500 mg PO BID 7 Days #14 tab 09/22/19 Tamsulosin [Flomax] 0.4 mg PO DAILY 7 Days #7 cap 09/22/19 Tramadol HCl [Tramadol Hydrochloride] 50 mg PO Q6H PRN 7 Days #15 tab 09/22/19 RX: Tramadol HCl 50 mg PO Q6HR #20 tab 08/06/20 Review of Systems - Review of Systems Constitutional: Denies: chills EENTM: Denies: blurred vision, tearing, nose pain, nose congestion Respiratory: Denies: cough, short of breath, stridor Cardiology: Denies: chest pain, palpitations, syncope Gastrointestinal/Abdominal: Denies: abdominal pain, nausea Genitourinary: Denies: see HPI, frequency Musculoskeletal: States: joint pain. Denies: back pain, joint swelling, muscle pain, muscle stiffness Past Medical History (General) - Patient Medical History Hx Seizures: No Hx Stroke: No Hx Dementia: No Hx Asthma: No Hx of COPD: No Hx Cardiac Disorders: No Hx Congestive Heart Failure: No Hx Pacemaker: No Hx Hypertension: Yes Hx Thyroid Disease: No Hx Diabetes: Yes Hx Gastroesophageal Reflux: No Hx Renal Disease: No Hx Cancer: No Hx of HIV: No Hx Hepatitis C: No Hx MRSA: No Surgical History: no surgical history - Vaccination History Hx Tetanus, Diphtheria Vaccination: No Hx Influenza Vaccination: Yes Hx Pneumococcal Vaccination: Yes - Social History Hx Tobacco Use: No Hx Chewing Tobacco Use: No Hx Alcohol Use: No Hx Substance Use: No Hx Substance Use Treatment: No Hx Depression: No Feels Threatened In Home Enviroment: No Feels Threatened In a Relationship: No Hx Physical Abuse: No Hx Emotional Abuse: No Hx Suspected Abuse: No - Female History Patient is a Female of Child Bearing Age (10 -59 yrs old): No Patient : No - Triage Comment ED Triage Comment: The patient was brought in to the ER via EMS and placed into ER bed 3 and left with rails up. She was alert and oriented times 4 and complained of pain to the right hip. She advised that she had not been taking her pain medications that she had been given. She denied any trauma and had no other complaints or obvious signs of injury noted. Family Medical History - Family History Father Family History: Unknown Living Status: Hx Family Hypertension: Yes - mother, father Hx Cardiac Disease: Yes - father Hx Family Cancer: Yes - mother Hx Family;Other: emphysema - mother Physical Exam - Physical Exam Eye Exam: bilateral normal Ears, Nose, Throat: hearing grossly normal, normal ENT inspection, normal pharynx Neck: non-tender, full range of motion, supple, normal inspection Respiratory: chest non-tender, lungs clear, normal breath sounds, no respiratory distress, no accessory muscle use Cardiovascular/Chest: normal peripheral pulses, regular rate, rhythm, no edema, no gallop Peripheral Pulses: femoral,right: 2+, femoral,left: 2+, posterior tibialis,right: 2+, posterior tibialis,left: 2+ Gastrointestinal/Abdominal: normal bowel sounds, non tender, soft Back Exam: normal inspection, no CVA tenderness Extremity: normal range of motion, normal inspection, no pedal edema, no calf tenderness, normal capillary refill, other - right hip pain with range of motion , full range of motion , neurovascular bundle intact 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 Has done x-rays about a week ago no fractures or arthritis. She did not take her pain medicine before coming to the ER today. Blood pressure is extremely high presentation states that she has not taken her blood pressure medicine as well Today in the ED today and she reports significant improvement in her symptoms and discharged home. Patient educated on the Importance of compliance with outpatient treatment regiment she verbalized understanding to follow-up with her primary care physician 1 to 2 days Departure - Departure Clinical Impression: Hypertension, Hip pain Time of Disposition: 00:25 Disposition: Discharge to Home or Self Care Departure Forms: ED Discharge - Pt. Copy, Patient Portal Self Enrollment Instructions: High Blood Pressure (DC), Arthritis and Exercise, Controlling Your Blood Pressure Through Lifestyle, Medicines for High Blood Pressure, Hip Pain (DC) Referrals: CINTHIA MEDRANO MD [Primary Care Provider] - 1-2 Weeks Home Medications: Ambulatory Orders RX: Lisinopril 40 mg PO DAILY@0700 03/25/17 Cyclobenzaprine HCl [Flexeril] 10 mg PO BEDTIME PRN #0 02/24/19 HYDROcodone 10MG/APAP 325MG [[place] 10/325] 1 tab PO Q4H PRN #0 02/24/19 Metformin HCl [Metformin Hydrochloride] 1,000 mg PO BID #0 02/24/19 RX: Albuterol Sulfate Nebs [Proventil Nebs] 0.083 % NEB QID #0 02/24/19 RX: Simvastatin 40 mg PO BEDTIME #0 02/24/19 RX: Ferrous Gluconate [Fergon] 325 mg PO DAILY tab 02/26/19 Ondansetron Odt [Zofran ODT] 8 mg PO Q8H PRN 7 Days #10 tab 09/22/19 RX: Ciprofloxacin HCl [Ciprofloxacin Hydrochlori] 500 mg PO BID 7 Days #14 tab 09/22/19 Tamsulosin [Flomax] 0.4 mg PO DAILY 7 Days #7 cap 09/22/19 Tramadol HCl [Tramadol Hydrochloride] 50 mg PO Q6H PRN 7 Days #15 tab 09/22/19 RX: Tramadol HCl 50 mg PO Q6HR #20 tab 08/06/20 Additional Instructions: Please take your pain medicine as prescribed Follow-up with your primary care physician in 1 to 2 days. Ensure take your blood pressure medication. Is very important that you be compliant with outpatient treatment regimens.
[2020-08-13] MEDS ORDERED: hydrALAZINE HCl 20 MG/ML VIAL IM ONE (23:48)
[2020-08-14 00:35] VITALS: BP 167/76; TEMP 97.4; O2SAT 95
== END 2020-08-14 00:35 | disposition home or self-care (01) ==
LOC: ER 22:39
DX: M25.551 Pain in right hip (principal); I10 Essential (primary) hypertension; E11.9 Type 2 diabetes mellitus without complications; Z79.899 Other long term (current) drug therapy; Z79.84 Long term (current) use of oral hypoglycemic drugs; Z88.5 Allergy status to narcotic agent; Z88.8 Allergy status to other drugs, medicaments and biological substances

== ENCOUNTER 2020-08-20 08:51 | Emergency (ER) | payer MEDICARE ==
[2020-08-20] MEDS ORDERED: fentaNYL CITRATE INJ 50 MCG/ML 2 ML AMP IV ONE ×2 (09:27→10:09)
--- NOTE | 2020-08-20 09:31 | ED.PDOC ---
History of Present Illness - General Chief Complaint: Trauma Stated Complaint: Fall with R hip pain Time Seen by Provider: 08/20/20 09:05 Source: patient, RN notes reviewed, Vital Signs reviewed, EMS notes reviewed Exam Limitations: no limitations - History of Present Illness Initial Comments: Patient is a 69-year-old white female who tripped and fell last night was unable to get up off the floor. After patient's fall, she complained of right hip pain. Is throbbing in nature. The pain is severe in nature. It is nonradiating. It is constant. It is worse with movement. It is improved with rest. Patient is unable to stand now. Patient lay on the floor all night long before she was able to drive herself to a phone. Timing/Duration: constant, other - 12 hours Severity: severe Improving Factors: rest Worsening Factors: movement Associated Symptoms: denies symptoms Allergies/Adverse Reactions: Allergies Codeine Allergy (Verified 03/10/19 15:53) Fexofenadine [From Isabela] Allergy (Verified 03/10/19 15:53) Home Medications: Ambulatory Orders Lisinopril 40 mg PO DAILY@0700 03/25/17 Metformin HCl [Metformin Hydrochloride] 1,000 mg PO BID #0 02/24/19 Simvastatin 40 mg PO BEDTIME #0 02/24/19 Naproxen Sodium 500 mg PO BID 08/20/20 Oxybutynin Chloride 5 mg PO TID 08/20/20 Tramadol HCl 50 mg PO Q6HR PRN 08/20/20 Review of Systems - Review of Systems Constitutional: States: no symptoms reported, see HPI. Denies: chills, fever, malaise, weakness EENTM: States: no symptoms reported. Denies: eye pain, blurred vision, double vision Respiratory: States: no symptoms reported. Denies: cough, short of breath, stridor, wheezing Cardiology: States: no symptoms reported. Denies: chest pain, palpitations, syncope Gastrointestinal/Abdominal: States: no symptoms reported. Denies: abdominal pain, constipation, diarrhea, nausea, vomiting Genitourinary: States: no symptoms reported. Denies: dysuria, frequency Musculoskeletal: States: see HPI, joint pain - Right hip. Denies: back pain, neck pain Skin: States: no symptoms reported. Denies: change in color, rash Neurological: States: no symptoms reported. Denies: headache, tingling, tremors, weakness Endocrine: States: no symptoms reported. Denies: increased hunger, increased thirst, increased urine Hematologic/Lymphatic: States: no symptoms reported All other Systems: Reviewed and Negative Past Medical History (General) - Patient Medical History Hx Seizures: No Hx Stroke: No Hx Dementia: No Hx Asthma: No Hx of COPD: No Hx Cardiac Disorders: No Hx Congestive Heart Failure: No Hx Pacemaker: No Hx Hypertension: Yes Hx Thyroid Disease: No Hx Diabetes: Yes Hx Gastroesophageal Reflux: No Hx Renal Disease: No Hx Cancer: No Hx of HIV: No Hx Hepatitis C: No Hx MRSA: No Surgical History: other - Vaccination History Hx Tetanus, Diphtheria Vaccination: No Hx Influenza Vaccination: Yes Hx Pneumococcal Vaccination: Yes - Social History Hx Tobacco Use: Yes Hx Chewing Tobacco Use: No Hx Alcohol Use: No Hx Substance Use: No Hx Substance Use Treatment: No Hx Depression: No Hx Physical Abuse: No Hx Emotional Abuse: No Hx Suspected Abuse: No - Female History Patient is a Female of Child Bearing Age (10 -59 yrs old): No Patient : No Family Medical History - Family History Father Family History: Unknown Living Status: Hx Family Hypertension: Yes - mother, father Hx Cardiac Disease: Yes - father Hx Family Cancer: Yes - mother Hx Family;Other: emphysema - mother Physical Exam - Physical Exam General Appearance: Alert, Anxious, Obvious distress, Unkempt, Well Developed, Well Hydrated, Well Nourished Eye Exam: bilateral normal Ears, Nose, Throat: hearing grossly normal, normal ENT inspection Neck: non-tender, full range of motion, supple Respiratory: chest non-tender, lungs clear, normal breath sounds, no respiratory distress, no accessory muscle use Cardiovascular/Chest: normal peripheral pulses, regular rate, rhythm, no edema, no gallop, no JVD, no murmur Peripheral Pulses: radial,right: 2+, radial,left: 2+ Gastrointestinal/Abdominal: normal bowel sounds, non tender, soft Back Exam: normal inspection, no CVA tenderness, no vertebral tenderness Extremity: no calf tenderness, normal capillary refill, other - +TTP of right hip 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 08/20/20 12:00 X-rays are negative for fracture. Patient's pain is improved after pain medication. Patient is requesting multiple doses of pain medicines while here in the department. Will attempt to ambulate the patient and should she be able to ambulate we will plan on discharge home. I will discussed the plan of care with the patient. 08/20/20 12:57 Patient ambulates without difficulty. Plan on discharge home with her . I discussed the plan of care with the patient she voices understanding and agreement. Kobe Nguyễn M.D. #[id number] - Results/Orders Results/Orders: EXAMINATION: Hip,Right 2 Views. HISTORY: 69 years Female. fall with right hip pain. . TECHNIQUE: XR HIP 2 OR MORE VIEWS COMPARISON: 08/06/2020 FINDINGS: Limited examination due to prominent soft tissue attenuation. Again noted is slight degenerative articular surface irregularity at the acetabulum. No definite right hip joint space narrowing. There is no radiographic evidence of definite acute fracture or dislocation. No evidence of focal intraosseous lesion. IMPRESSION: No definite radiographically visible acute skeletal pathology Degenerative change is again slight Electronically signed by: Edd Mcghee MD 08/20/2020 9:36 AM [employer] EXAM: CT of the pelvis without contrast HISTORY: fall with right hip pain. TECHNIQUE: Axial CT images of the pelvis without intravenous contrast and without oral contrast. Sagittal and coronal reformats were rendered. The CT exam was performed using one or more of the following dose reduction techniques: Automated exposure control, adjustment of the mA and/or kV according to patient size, and/or use of iterative reconstruction technique. Comparison: CT of the abdomen and pelvis from 09/22/2019. Findings: Bones: No pelvic fracture or dislocation. Mild degenerative changes in both hips. Mild/moderate degenerative changes in the lower lumbar spine. Slight 3 mm grade 1 anterolisthesis of L5 ov er S1. Soft tissues: Mild asymmetric edema/swelling of the right iliopsoas muscle. No distinct intramuscular hematoma. Partially visualized abdominal aortic aneurysm, similar to 09/22/2019. No pelvic free fluid. Prior hysterectomy. IMPRESSION: 1. No acute bone abnormality. 2. Mild edematous changes in the right iliopsoas muscle (muscle strain or myositis). 3. Partially visualized stable aortic aneurysm. Electronically signed by: Omi Panda MD 08/20/2020 11:02 AM Laboratory Results - last 24 hr 08/20/20 08/20/20 09:32 09:32 WBC 6.4 RBC 4.80 Hgb 9.8 L Hct 32.3 L MCV 67.3 L MCH 20.3 L MCHC 30.2 L RDW 18.6 H Plt Count 273 MPV 7.3 L Absolute Neuts (auto) 5.20 Absolute Lymphs (auto) 0.80 L Absolute Monos (auto) 0.40 Absolute Eos (auto) 0.00 Absolute Basos (auto) 0.10 Neutrophils % 81.0 H Lymphocytes % 12.3 L Monocytes % 5.8 Eosinophils % 0.1 L Basophils % 0.8 Normal RBC Morphology 1+microcytosis Sodium 142 Potassium 3.3 L Chloride 103 Carbon Dioxide 27 Anion Gap 15.3 BUN 17 Creatinine 0.56 L BUN/Creatinine Ratio 30.4 H Random Glucose 138 H Serum Osmolality 286.9 Calcium 9.3 Total Bilirubin 0.6 AST 31 ALT 20 Alkaline Phosphatase 111 Creatine Kinase 479 H* Serum Total Protein 7.7 Albumin 4.2 Globulin 3.5 Albumin/Globulin Ratio 1.2 Lipase 28 Vital Signs 08/20/20 08/20/20 09:17 10:01 Temperature 97.6 F Pulse Rate [ 90 77 Pulse ox] Respiratory 14 20 Rate Blood Pressure 162/92 186/87 [Pulse ox] O2 Sat by Pulse 90 L 99 Oximetry Departure - Departure Clinical Impression: Hip pain, Multiple contusions Fall Qualifiers: Encounter type: initial encounter Qualified Code(s): W19.XXXA - Unspecified fall, initial encounter Time of Disposition: 12:58 Disposition: Discharge to Home or Self Care Condition: Fair Departure Forms: ED Discharge - Pt. Copy, Patient Portal Self Enrollment Instructions: DI for Trauma, Contusion (DC), Preventing Falls in the Older Adult Diet: resume usual diet Activity: increase activity as tolerated Referrals: CINTHIA EMDRANO MD [Primary Care Provider] - 1-5 Days Home Medications: Ambulatory Orders Lisinopril 40 mg PO DAILY@0700 03/25/17 Metformin HCl [Metformin Hydrochloride] 1,000 mg PO BID #0 02/24/19 Simvastatin 40 mg PO BEDTIME #0 02/24/19 Naproxen Sodium 500 mg PO BID 08/20/20 Oxybutynin Chloride 5 mg PO TID 08/20/20 Tramadol HCl 50 mg PO Q6HR PRN 08/20/20
--- NOTE | 2020-08-20 09:37 | RAD ---
EXAMINATION: Hip,Right 2 Views. HISTORY: 69 years Female. fall with right hip pain. . TECHNIQUE: XR HIP 2 OR MORE VIEWS COMPARISON: 08/06/2020 FINDINGS: Limited examination due to prominent soft tissue attenuation. Again noted is slight degenerative articular surface irregularity at the acetabulum. No definite right hip joint space narrowing. There is no radiographic evidence of definite acute fracture or dislocation. No evidence of focal intraosseous lesion. IMPRESSION: No definite radiographically visible acute skeletal pathology Degenerative change is again slight Electronically signed by: Edd Mcghee MD 08/20/2020 9:36 AM [facility]
--- NOTE | 2020-08-20 11:04 | CT ---
EXAM: CT of the pelvis without contrast HISTORY: fall with right hip pain. TECHNIQUE: Axial CT images of the pelvis without intravenous contrast and without oral contrast. Sagittal and coronal reformats were rendered. The CT exam was performed using one or more of the following dose reduction techniques: Automated exposure control, adjustment of the mA and/or kV according to patient size, and/or use of iterative reconstruction technique. Comparison: CT of the abdomen and pelvis from 09/22/2019. Findings: Bones: No pelvic fracture or dislocation. Mild degenerative changes in both hips. Mild/moderate degenerative changes in the lower lumbar spine. Slight 3 mm grade 1 anterolisthesis of L5 over S1. Soft tissues: Mild asymmetric edema/swelling of the right iliopsoas muscle. No distinct intramuscular hematoma. Partially visualized abdominal aortic aneurysm, similar to 09/22/2019. No pelvic free fluid. Prior hysterectomy. IMPRESSION: 1. No acute bone abnormality. 2. Mild edematous changes in the right iliopsoas muscle (muscle strain or myositis). 3. Partially visualized stable aortic aneurysm. Electronically signed by: Omi Panda MD 08/20/2020 11:02 AM [facility]
[2020-08-20 13:47] VITALS: BP 174/86; TEMP 97.5; O2SAT 99
== END 2020-08-20 13:15 | disposition home or self-care (01) ==
LOC: ER 08:51
DX: S70.01XA Contusion of right hip, initial encounter (principal); I10 Essential (primary) hypertension; E11.9 Type 2 diabetes mellitus without complications; W01.0XXA Fall on same level from slipping, tripping and stumbling without subsequent striking against object, initial encounter; Z79.899 Other long term (current) drug therapy; Z79.84 Long term (current) use of oral hypoglycemic drugs; Z87.891 Personal history of nicotine dependence; Y92.9 Unspecified place or not applicable; Z88.5 Allergy status to narcotic agent; Z88.8 Allergy status to other drugs, medicaments and biological substances
CPT/HCPCS: 36415; 72192; 73502; 80053; 82550; 83690; 85025; J3010

== ENCOUNTER 2020-08-22 05:52 | Day surgery (SDC) | payer MEDICARE ==
[2020-08-22] MEDS ORDERED: LIDOCAINE 1% 10 ML VIAL INJ ONE (07:21)
[2020-08-22] MEDS ORDERED: BUPIVACAINE 0.5% 30 ML VIAL INJ ONE (07:21)
[2020-08-22] MEDS ORDERED: BETAMETHASONE ACETATE/BETAMETH 6 MG/ML VIAL IM ONE (07:21)
[2020-08-22] MEDS: LIDOCAINE 1% 10 ML VIAL INJ ONE (08:54)
[2020-08-22] MEDS: BETAMETHASONE ACETATE/BETAMETH 6 MG/ML VIAL IM ONE (08:54)
[2020-08-22] MEDS: BUPIVACAINE 0.5% 30 ML VIAL INJ ONE (08:54)
== END 2020-08-22 09:25 | disposition home or self-care (01) ==
LOC: AMB 05:52
PROVIDERS: ATTEND Family Medicine Sports Medicine
DX: M25.551 Pain in right hip (principal); M16.11 Unilateral primary osteoarthritis, right hip; M70.61 Trochanteric bursitis, right hip; J44.9 Chronic obstructive pulmonary disease, unspecified; E78.5 Hyperlipidemia, unspecified; I10 Essential (primary) hypertension; Z86.711 Personal history of pulmonary embolism; Z86.73 Personal history of transient ischemic attack (TIA), and cerebral infarction without residual deficits; Z96.651 Presence of right artificial knee joint; Z87.891 Personal history of nicotine dependence; Z88.5 Allergy status to narcotic agent; Z79.899 Other long term (current) drug therapy

== ENCOUNTER 2020-08-23 01:34 | Emergency (ER) | payer MEDICARE ==
[2020-08-23 01:54] VITALS: TEMP 99; O2SAT 96
[2020-08-23] MEDS ORDERED: ACETAMINOPHEN 500 MG TAB PO ONE (02:11)
[2020-08-23] MEDS ORDERED: ONDANSETRON ODT 8 MG TAB SL ONE (02:11)
[2020-08-23] MEDS ORDERED: traMADol HCL 50 MG TAB PO ONE (02:11)
[2020-08-23] MEDS ORDERED: CYCLOBENZAPRINE HCL 5 MG TAB PO ONE (02:11)
--- NOTE | 2020-08-23 02:15 | ED.PDOC ---
History of Present Illness - General Chief Complaint: General Stated Complaint: right knee pain Time Seen by Provider: 08/23/20 02:01 - History of Present Illness Initial Comments: PATIENT PRESENTS C/O CHRONIC RIGHT THIGH PAIN, WORSE SINCE INJECTION YESTEDAY PERFORMED AT HER DOCTOR'S OFFICE. PATIENT POINTS TO HER RIGHT ANTERIOR LATERAL THIGH AREA, SEVERAL INCHES BELOW AND ANTERIOR TO THE TROCHANTERIC BURSA. THE AREA APPEARS TO STILL HAVE SOME SURGICAL PREP ON IT FROM EARLIER YESTERDAY. Pain - Lower Extremity: severe: Right Thigh/Hip Method of Injury: unknown Improving Factors: nothing Worsening Factors: nothing Allergies/Adverse Reactions: Allergies Codeine Allergy (Verified 08/23/20 01:54) Fexofenadine [From Isabela] Allergy (Verified 08/23/20 01:54) Home Medications: Ambulatory Orders Lisinopril 40 mg PO DAILY@0700 03/25/17 Metformin HCl [Metformin Hydrochloride] 1,000 mg PO BID #0 02/24/19 Simvastatin 40 mg PO BEDTIME #0 02/24/19 Naproxen Sodium 500 mg PO BID 08/20/20 Oxybutynin Chloride 5 mg PO TID 08/20/20 Tramadol HCl 50 mg PO Q6HR PRN 08/20/20 Tramadol HCl [Ultram] 50 mg PO Q4H PRN #20 tab 08/23/20 Review of Systems - Review of Systems Constitutional: States: no symptoms reported EENTM: States: no symptoms reported Respiratory: States: no symptoms reported Cardiology: States: no symptoms reported Gastrointestinal/Abdominal: States: see HPI Genitourinary: States: no symptoms reported Musculoskeletal: States: see HPI Past Medical History (General) - Patient Medical History Hx Seizures: No Hx Stroke: No Hx Dementia: No Hx Asthma: No Hx of COPD: No Hx Cardiac Disorders: No Hx Congestive Heart Failure: No Hx Pacemaker: No Hx Hypertension: Yes Hx Thyroid Disease: No Hx Diabetes: Yes Hx Gastroesophageal Reflux: No Hx Renal Disease: No Hx Cancer: No Hx of HIV: No Hx Hepatitis C: No Hx MRSA: No - Vaccination History Hx Tetanus, Diphtheria Vaccination: - unknown Hx Influenza Vaccination: Yes Hx Pneumococcal Vaccination: Yes - Social History Hx Tobacco Use: Yes - quit 10 years ago Hx Chewing Tobacco Use: No Hx Alcohol Use: No Hx Substance Use: No Hx Substance Use Treatment: No Hx Depression: No Hx Physical Abuse: No Hx Emotional Abuse: No Hx Suspected Abuse: No - Female History Patient : No Family Medical History - Family History Father Family History: Unknown Living Status: Hx Family Hypertension: Yes - mother, father Hx Cardiac Disease: Yes - father Hx Family Cancer: Yes - mother Hx Family;Other: emphysema - mother Physical Exam - Physical Exam General Appearance: Agitated, Alert, Unkempt Thigh/Hip: normal inspection, pain - PALPATION OF RIGHT ANTERIOR LATERAL THIGH Departure - Departure Clinical Impression: Hip pain Time of Disposition: 02:13 Disposition: Discharge to Home or Self Care Condition: Good Departure Forms: ED Discharge - Pt. Copy, Patient Portal Self Enrollment Instructions: Hip Pain Referrals: CINTHIA MEDRANO MD [Primary Care Provider] - 1-2 Weeks Prescriptions: Tramadol HCl [Ultram] 50 mg PO Q4H PRN #20 tab PRN Reason: Pain Home Medications: Ambulatory Orders Lisinopril 40 mg PO DAILY@0700 03/25/17 Metformin HCl [Metformin Hydrochloride] 1,000 mg PO BID #0 02/24/19 Simvastatin 40 mg PO BEDTIME #0 02/24/19 Naproxen Sodium 500 mg PO BID 08/20/20 Oxybutynin Chloride 5 mg PO TID 08/20/20 Tramadol HCl 50 mg PO Q6HR PRN 08/20/20 Tramadol HCl [Ultram] 50 mg PO Q4H PRN #20 tab 08/23/20
[2020-08-23] MEDS ORDERED: CYCLOBENZAPRINE HCL 10 MG TAB ONE (02:16)
[2020-08-23 02:39] VITALS: BP 180/94
== END 2020-08-23 02:43 | disposition home or self-care (01) ==
LOC: ER 01:34
DX: M25.551 Pain in right hip (principal); G89.29 Other chronic pain; M79.651 Pain in right thigh; E11.9 Type 2 diabetes mellitus without complications; I10 Essential (primary) hypertension; Z87.891 Personal history of nicotine dependence; Z79.84 Long term (current) use of oral hypoglycemic drugs; Z79.899 Other long term (current) drug therapy; Z88.5 Allergy status to narcotic agent; Z88.8 Allergy status to other drugs, medicaments and biological substances

== ENCOUNTER 2020-08-24 09:50 | Emergency (ER) | payer MEDICARE ==
[2020-08-24 10:08] VITALS: TEMP 98.8
--- NOTE | 2020-08-24 10:09 | ED.PDOC ---
History of Present Illness - General Chief Complaint: General Stated Complaint: arthritis pain Time Seen by Provider: 08/24/20 10:02 - History of Present Illness Initial Comments: 69-year-old female has a past medical history presents to ED via EMS complaining of right hip pain. Patient has been having right hip pain for prolonged period. She states she has only been having this pain for approximately 2 weeks however previous notes state the pain has been ongoing for over a month. Patient denies any new trauma or injury. She denies any change in characteristics of the pain other than it being uncontrolled at this time. She denies any associated numbness/tingling or acute weakness. She does have decreased ability for ambulation secondary to pain alone is associated. Positive history of similar symptoms. Denies alleviating factors. Ambulation and movement exacerbate the pain. She denies other signs, symptoms, complaints at this time. Allergies/Adverse Reactions: Allergies Codeine Allergy (Verified 08/23/20 01:54) Fexofenadine [From Isabela] Allergy (Verified 08/23/20 01:54) Home Medications: Ambulatory Orders Lisinopril 40 mg PO DAILY@0700 03/25/17 Metformin HCl [Metformin Hydrochloride] 1,000 mg PO BID #0 02/24/19 Simvastatin 40 mg PO BEDTIME #0 02/24/19 Naproxen Sodium 500 mg PO BID 08/20/20 Oxybutynin Chloride 5 mg PO TID 08/20/20 Tramadol HCl 50 mg PO Q6HR PRN 08/20/20 Tramadol HCl [Ultram] 50 mg PO Q4H PRN #20 tab 08/23/20 HYDROcodone 5MG/APAP 325MG [[place] 5/325] 0.5 - 1 ea PO TID PRN #8 tab 08/24/20 Review of Systems - Review of Systems Constitutional: Denies: chills, fever Respiratory: Denies: short of breath Cardiology: Denies: chest pain, edema Gastrointestinal/Abdominal: Denies: nausea, vomiting Genitourinary: Denies: dysuria, frequency Musculoskeletal: States: joint pain, muscle pain. Denies: back pain, joint swelling Skin: Denies: change in color, rash Neurological: Denies: numbness, tingling, weakness Hematologic/Lymphatic: Denies: easy bruising Past Medical History (General) - Patient Medical History Hx Seizures: No Hx Stroke: No Hx Dementia: No Hx Asthma: No Hx of COPD: Yes Hx Cardiac Disorders: No Hx Congestive Heart Failure: No Hx Pacemaker: No Hx Hypertension: Yes Hx Thyroid Disease: No Hx Diabetes: Yes Hx Gastroesophageal Reflux: No Hx Renal Disease: No Hx Cancer: No Hx of HIV: No Hx Hepatitis C: No Hx MRSA: No - Vaccination History Hx Tetanus, Diphtheria Vaccination: - unknown Hx Influenza Vaccination: Yes Hx Pneumococcal Vaccination: Yes - Social History Hx Tobacco Use: Yes - quit 10 years ago Hx Chewing Tobacco Use: No Hx Alcohol Use: No Hx Substance Use: No Hx Substance Use Treatment: No Hx Depression: No Hx Physical Abuse: No Hx Emotional Abuse: No Hx Suspected Abuse: No - Female History Patient is a Female of Child Bearing Age (10 -59 yrs old): No Patient : No Family Medical History - Family History Father Family History: Unknown Living Status: Hx Family Hypertension: Yes - mother, father Hx Cardiac Disease: Yes - father Hx Family Cancer: Yes - mother Hx Family;Other: emphysema - mother Physical Exam - Physical Exam General Appearance: Alert, Other - Mild distress, non toxic appearing, not ill appearing Eye Exam: bilateral normal, bilateral other - no scleral icterus Ears, Nose, Throat: normal ENT inspection Neck: full range of motion Respiratory: lungs clear, normal breath sounds, no respiratory distress, no accessory muscle use Cardiovascular/Chest: regular rate, rhythm, no edema, no gallop, no JVD, no murmur Peripheral Pulses: dorsalis pedis,right: 2+, posterior tibialis,right: 2+ Gastrointestinal/Abdominal: non tender, soft Extremity: other - right hip TTP without swelling, erythema, induration, focal warmth, crepitance, deformity Neurologic: alert, normal mood/affect, oriented x 3 Skin Exam: normal color, warm/dry, other - no rash Progress - Progress Progress: Bryan Massey DO Emergency Medicine Physician [id number] Appropriate PPE of surgical mask, gown, gloves, and eye protection (if encounter >5 minutes) utilized with every patient encounter; in accordance with hospital policy. Presents for poorly controlled pain from her acute on chronic right hip pain. She has been seen in ED on multiple encounters for the same complaint. No new trauma or injury. No change in complaint other than uncontrolled pain. I will perform imaging, labs, provide appropriate pharmacotherapy, and continue to monitor/reassess. Dispo will depend on imaging and lab results and overall course in ED; however, discharge home is expected with f/u, education, and possible rx. 08/24/20 11:32 I have consulted on the phone with Dr. Rivera. We discussed patient's case in ED along with all current findings. He agrees to see the patient in his clinic next couple days as well as have patient see the sports statistician there. They will consider doing another joint injection. He will have his clinic call patient later this afternoon when she is home to set up the appointment. 11:34 Recheck patient. No acute distress, vital signs stable. She states she is feeling better with improved pain at this time. I discussed discharge with her along with current daily findings pertinent labs and x-ray findings, clinical impression, discharge medication prescription plan, and follow-up. She agrees to call Dr. Rivera's office today to set up a follow-up appointment the next couple days. We have discussed return precautions. Patient voices understanding, agrees with plan, and all questions answered. Multiple rechecks of patient throughout ED encounter. Vital signs stable, no acute distress, and with improving pain.ED course. No acute decompensations during ED course. 08/24/20 12:57 I have spoken again with Dr. Rivera on the phone. I have notified him of the E prescribe difficulties were having and that I did not have my triplicate prescription pad with me. He agrees to have patient come by his clinic at 1330 and stay in a parking lot. She is to call inside to his nurse and they will get her a prescription for some hydrocodone's for breakthrough pain control. She will continue with the appointment they already have scheduled for her tomorrow in the morning. I have discussed all this with patient and she agrees with plan. She voices understanding and all questions answered. - Results/Orders Results/Orders: Laboratory Results - last 24 hr 08/24/20 08/24/20 10:20 10:20 WBC 6.8 RBC 4.85 Hgb 10.0 L Hct 32.9 L MCV 67.9 L MCH 20.6 L MCHC 30.3 L RDW 18.5 H Plt Count 259 MPV 7.0 L Absolute Neuts (auto) 4.70 Absolute Lymphs (auto) 1.50 Absolute Monos (auto) 0.50 Absolute Eos (auto) 0.00 Absolute Basos (auto) 0.00 Neutrophils % 69.5 Lymphocytes % 22.4 Monocytes % 7.6 Eosinophils % 0.2 L Basophils % 0.3 Sodium 141 Potassium 3.3 L Chloride 101 Carbon Dioxide 30 Anion Gap 13.3 BUN 30 H Creatinine 0.75 BUN/Creatinine Ratio 40.0 H Random Glucose 124 H Serum Osmolality 288.9 Calcium 9.1 EXAM DESCRIPTION: Hip,Right 2 Views CLINICAL HISTORY: 69 years, Female, pain COMPARISON: None TECHNIQUE: AP and frog leg lateral views of the hip FINDINGS: 2 views of the right hip reveal no fracture or dislocation. No lytic bone lesion. Narrowing of the hip joint spaces consistent with degenerative cartilage loss. Bones of the pelvic ring appear intact. IMPRESSION: Negative for fracture or dislocation. Electronically signed by: Yonatan Pedro MD 08/24/2020 10:44 AM [employer] Workstation: [employer] Vital Signs - 24 hr 08/24/20 08/24/20 10:03 13:15 Temperature 98.8 F Pulse Rate [ 92 H 78 monitor] Respiratory 21 20 Rate Blood Pressure 192/100 173/81 [Right Arm] O2 Sat by Pulse 90 L 92 L Oximetry Departure - Departure Clinical Impression: Right hip pain Degenerative joint disease (DJD) of hip Qualifiers: Osteoarthritis type: unspecified Laterality: right Qualified Code(s): M16.11 - Unilateral primary osteoarthritis, right hip Time of Disposition: 11:35 Disposition: Discharge to Home or Self Care Condition: Fair Departure Forms: ED Discharge - Pt. Copy, Patient Portal Self Enrollment Instructions: Osteoarthritis (DC), Hip Pain (DC) Activity: increase activity as tolerated Referrals: CINTHIA RIVERA MD [Primary Care Provider] - 1-2 Days Prescriptions: HYDROcodone 5MG/APAP 325MG [[place] 5/325] 0.5 - 1 ea PO TID PRN #8 tab PRN Reason: See Comments Below Home Medications: Ambulatory Orders Lisinopril 40 mg PO DAILY@0700 03/25/17 Metformin HCl [Metformin Hydrochloride] 1,000 mg PO BID #0 02/24/19 Simvastatin 40 mg PO BEDTIME #0 02/24/19 Naproxen Sodium 500 mg PO BID 08/20/20 Oxybutynin Chloride 5 mg PO TID 08/20/20 Tramadol HCl 50 mg PO Q6HR PRN 08/20/20 Tramadol HCl [Ultram] 50 mg PO Q4H PRN #20 tab 08/23/20 HYDROcodone 5MG/APAP 325MG [[place] 5/325] 0.5 - 1 ea PO TID PRN #8 tab 08/24/20
[2020-08-24] MEDS ORDERED: KETOROLAC TROMETHAMINE INJ 30 MG/ML VIAL IV ONE (10:13)
[2020-08-24] MEDS ORDERED: MORPHINE SULFATE INJ 10 MG/ML VIAL IV ONE (10:13)
[2020-08-24] MEDS ORDERED: SODIUM CHLORIDE 0.9% (FLUSH) 10 ML SYG ONE (10:27)
--- NOTE | 2020-08-24 10:45 | RAD ---
EXAM DESCRIPTION: Hip,Right 2 Views CLINICAL HISTORY: 69 years, Female, pain COMPARISON: None TECHNIQUE: AP and frog leg lateral views of the hip FINDINGS: 2 views of the right hip reveal no fracture or dislocation. No lytic bone lesion. Narrowing of the hip joint spaces consistent with degenerative cartilage loss. Bones of the pelvic ring appear intact. IMPRESSION: Negative for fracture or dislocation. Electronically signed by: Yonatan Pedro MD 08/24/2020 10:44 AM [facility]
[2020-08-24 13:41] VITALS: BP 173/81; O2SAT 92
== END 2020-08-24 12:15 | disposition home or self-care (01) ==
LOC: ER 09:50
DX: M16.11 Unilateral primary osteoarthritis, right hip (principal); J44.9 Chronic obstructive pulmonary disease, unspecified; I10 Essential (primary) hypertension; E11.9 Type 2 diabetes mellitus without complications; Z79.84 Long term (current) use of oral hypoglycemic drugs; Z79.899 Other long term (current) drug therapy; Z88.5 Allergy status to narcotic agent; Z88.8 Allergy status to other drugs, medicaments and biological substances
CPT/HCPCS: 73502; 80048; 85025; A4216; J1885; J2270

== ENCOUNTER 2020-08-27 02:29 | Emergency (ER) | payer MEDICARE ==
[2020-08-27] MEDS ORDERED: ONDANSETRON INJ 4 MG/2 ML VIAL IV ONE (03:30)
[2020-08-27] MEDS ORDERED: MORPHINE SULFATE INJ 10 MG/ML VIAL IV ONE (03:30)
--- NOTE | 2020-08-27 03:32 | ED.PDOC ---
History of Present Illness - General Time Seen by Provider: 08/27/20 02:50 Source: patient - History of Present Illness Initial Comments: 69-year-old female who is brought in by EMS from home for chief complaint of right hip pain. Pt is very poor historian. Patient reports history of chronic right hip pain but has been worsened in the past 1 to 2 weeks. She has been seen in the ED numerous times in the past 2 weeks with the same complaint, most recent visit being 3 days ago. At that time she underwent x-ray imaging of the pelvis which revealed no acute findings but did demonstrate significant bilateral degenerative changes to the hip joints. Patient also had CT imaging of the pelvis last week which again showed bony degenerative changes of the right hip. Patient was also noted to have some mild edematous changes of the right iliopsoas muscle consistent with likely myositis. Patient denies any acute injuries or traumas recently. She reports constant stabbing pain to the right anterolateral hip region without radiation, states worsened this evening, currently 10/10 severity, worse with range of motion of the hip or attempted standing or walking. She has been taking tramadol but only 1 to 2 tablets in the past 24 hours with little relief at home. She reports she is not prescribed anything stronger than this. PCP is Dr. Rivera. Pt does have simvastatin listed as daily medication and was noted to have slightly elevated CPK level on 08/20/20. Allergies/Adverse Reactions: Allergies Codeine Allergy (Verified 08/23/20 01:54) Fexofenadine [From Isabela] Allergy (Verified 08/23/20 01:54) Home Medications: Ambulatory Orders Lisinopril 40 mg PO DAILY@0700 03/25/17 Metformin HCl [Metformin Hydrochloride] 1,000 mg PO BID #0 02/24/19 Simvastatin 40 mg PO BEDTIME #0 02/24/19 Naproxen Sodium 500 mg PO BID 08/20/20 Oxybutynin Chloride 5 mg PO TID 08/20/20 Tramadol HCl 50 mg PO Q6HR PRN 08/20/20 Tramadol HCl [Ultram] 50 mg PO Q4H PRN #20 tab 08/23/20 HYDROcodone 5MG/APAP 325MG [[place] 5/325] 0.5 - 1 ea PO TID PRN #8 tab 08/24/20 Review of Systems - Review of Systems Review of Systems: 08/27/20 03:38 as per HPI All other Systems: Reviewed and Negative Past Medical History (General) - Patient Medical History Hx Seizures: No Hx Stroke: No Hx Dementia: No Hx Asthma: No Hx of COPD: Yes Hx Cardiac Disorders: No Hx Congestive Heart Failure: No Hx Pacemaker: No Hx Hypertension: Yes Hx Thyroid Disease: No Hx Diabetes: Yes Hx Gastroesophageal Reflux: No Hx Renal Disease: No Hx Cancer: No Hx of HIV: No Hx Hepatitis C: No Hx MRSA: No - Vaccination History Hx Tetanus, Diphtheria Vaccination: - unknown Hx Influenza Vaccination: Yes Hx Pneumococcal Vaccination: Yes - Social History Hx Tobacco Use: Yes - quit 10 years ago Hx Chewing Tobacco Use: No Hx Alcohol Use: No Hx Substance Use: No Hx Substance Use Treatment: No Hx Depression: No Hx Physical Abuse: No Hx Emotional Abuse: No Hx Suspected Abuse: No - Female History Patient : No Family Medical History - Family History Father Family History: Unknown Living Status: Hx Family Hypertension: Yes - mother, father Hx Cardiac Disease: Yes - father Hx Family Cancer: Yes - mother Hx Family;Other: emphysema - mother Physical Exam - Physical Exam General Appearance: Alert, Comfortable, No apparent distress Eye Exam: bilateral normal Ears, Nose, Throat: normal ENT inspection, normal pharynx Neck: non-tender, full range of motion, supple, normal inspection Respiratory: lungs clear, normal breath sounds, no respiratory distress, no accessory muscle use Cardiovascular/Chest: normal peripheral pulses, regular rate, rhythm, no edema, no gallop, no JVD, no murmur Peripheral Pulses: radial,right: 2+, radial,left: 2+ Gastrointestinal/Abdominal: non tender, soft Back Exam: normal inspection Extremity: other - BL hips appear normal on inpsection w/o bruising/swelling/deformity. Mild TTP R anterolateral hip region. 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 Consider also myositis (on statin), bursitis, labral injury, malingering, other -pt stable on arrival -obtain basic bloodwork, CPK to check for myositis/rhabdo -morphine 4 mg IV, Zofran 4 mg IV 08/27/20 05:37 -Patient reports pain is much improved. She is now able to stand and and transfer to the toilet with some assistance. She remained stable. Her lab work is largely unremarkable. CPK is slightly elevated but is actually improved from last week. Highly doubtful of rhabdomyolysis or statin induced myositis. I suspect that her pain is from chronic degenerative right hip osteoarthritis. Her previous x-rays demonstrated marked joint space narrowing and evidence of degeneration and arthritis. -Advised the patient to continue [id number] analgesics and prescribed tramadol for breakthrough pain. I educated that she may take this more frequently if needed at home for the pain. She needs to follow-up closely with her PCP to establish better outpatient pain control. Toribio Greenfield MD [facility]illing #[id number] Laboratory Results - last 24 hr 08/27/20 08/27/20 03:37 03:37 WBC 6.1 RBC 4.83 Hgb 9.8 L Hct 32.9 L MCV 68.2 L MCH 20.3 L MCHC 29.8 L RDW 18.9 H Plt Count 231 MPV 7.6 Absolute Neuts (auto) 4.30 Absolute Lymphs (auto) 1.30 Absolute Monos (auto) 0.40 Absolute Eos (auto) 0.10 Absolute Basos (auto) 0.00 Neutrophils % 69.8 Lymphocytes % 21.4 Monocytes % 6.7 Eosinophils % 1.5 Basophils % 0.6 Sodium 141 Potassium 3.3 L Chloride 102 Carbon Dioxide 30 Anion Gap 12.3 BUN 23 H Creatinine 0.78 BUN/Creatinine Ratio 29.5 H Random Glucose 121 H Serum Osmolality 286.2 Calcium 8.9 Total Bilirubin 0.8 AST 24 ALT 19 Alkaline Phosphatase 77 Creatine Kinase 251 H* Serum Total Protein 6.5 Albumin 3.7 Globulin 2.8 Albumin/Globulin Ratio 1.3 Departure - Departure Clinical Impression: Osteoarthritis of right hip Qualifiers: Osteoarthritis type: primary Qualified Code(s): M16.11 - Unilateral primary osteoarthritis, right hip Degenerative joint disease (DJD) of hip Qualifiers: Osteoarthritis type: primary Laterality: right Qualified Code(s): M16.11 - Unilateral primary osteoarthritis, right hip Time of Disposition: 05:36 Disposition: Discharge to Home or Self Care Condition: Good Instructions: Osteoarthritis (DC), Hip Pain (DC) Diet: resume usual diet Activity: increase activity as tolerated Referrals: CINTHIA RIVERA MD [Primary Care Provider] - 1-2 Weeks Home Medications: Ambulatory Orders Lisinopril 40 mg PO DAILY@0700 03/25/17 Metformin HCl [Metformin Hydrochloride] 1,000 mg PO BID #0 02/24/19 Simvastatin 40 mg PO BEDTIME #0 02/24/19 Naproxen Sodium 500 mg PO BID 08/20/20 Oxybutynin Chloride 5 mg PO TID 08/20/20 Tramadol HCl 50 mg PO Q6HR PRN 08/20/20 Tramadol HCl [Ultram] 50 mg PO Q4H PRN #20 tab 08/23/20 HYDROcodone 5MG/APAP 325MG [[place] 5/325] 0.5 - 1 ea PO TID PRN #8 tab 08/24/20 Additional Instructions: Continue take [id number] medications as needed for pain and inflammation such as ibuprofen 600 mg every 6 hours as needed and Tylenol 650 mg every 6 hours as needed. You may take the tramadol as directed for breakthrough pain. You will need to follow-up with your primary care doctor in the next 1 to 2 days for repeat evaluation or sooner as needed for your chronic right hip pain.
[2020-08-27 06:10] VITALS: BP 171/84; TEMP 96.8; O2SAT 93
== END 2020-08-27 05:50 | disposition home or self-care (01) ==
LOC: ER 02:29
DX: M16.11 Unilateral primary osteoarthritis, right hip (principal); G89.29 Other chronic pain; J44.9 Chronic obstructive pulmonary disease, unspecified; I10 Essential (primary) hypertension; E11.9 Type 2 diabetes mellitus without complications; Z87.891 Personal history of nicotine dependence; Z79.899 Other long term (current) drug therapy; Z79.84 Long term (current) use of oral hypoglycemic drugs; Z88.5 Allergy status to narcotic agent; Z88.8 Allergy status to other drugs, medicaments and biological substances
CPT/HCPCS: 36415; 80053; 82550; 85025; J2270; J2405